=== PATIENT | female | born 1990 | race Caucasian/White ===

== ENCOUNTER 2023-07-22 14:23 | Inpatient (IN) | payer OTHER ==
[2023-07-22] MEDS ORDERED: LORazepam 0.5 MG TAB PO PRN (15:16)
[2023-07-22] MEDS ORDERED: LORazepam 2 MG/ML INJ IV PRN (15:16)
[2023-07-22] MEDS ORDERED: chlordiazePOXIDE 25 MG CAP PO PRN ×4 (15:16)
[2023-07-22] MEDS ORDERED: LORazepam 1 MG TAB PO PRN (15:16)
--- NOTE | 2023-07-22 15:18 | ED ---
Seizure HPI - General Chief Complaint: Seizure Stated Complaint: seizure Time Seen by Provider: 07/22/23 15:12 Source: patient, EMS, RN notes reviewed, old records reviewed Mode of arrival: EMS Limitations: altered mental status - History of Present Illness Initial Comments: This is a 32-year-old female to the ER for evaluation today. Patient presents today for evaluation of seizure with significant alcohol withdrawal and hallucinations here in the emergency department today. Patient is in a mildly postictal state shaky weak and complaining of confusion and wanting to stop drinking MD Complaint: seizure, possible seizure -: hour(s) Description of Episode: loss of consciousness, tonic-clonic movement -: second(s) Witnessed: yes - by bystander Trauma: Yes Seizure History: known seizure disorder, history of withdrawal seizures Place: home Possible Precipitating Event: none Associated Symptoms: denies other symptoms Treatments Prior to Arrival: none - Related Data Home Medications Medication Instructions Recorded Confirmed Gabapentin [Neurontin] 100 mg PO DAILY PRN 07/22/23 07/24/23 Previous Rx's Medication Instructions Recorded Folic Acid 1 mg PO DAILY #30 tab 07/23/23 Multivitamins, Thera [Multivitamin 1 each PO DAILY #30 tab 07/23/23 (formulary)] Pantoprazole [Protonix] 40 mg PO DAILY #30 tab 07/27/23 chlordiazePOXIDE HCl [Librium] See Taper PO DIRECTED 3 Days #6 07/27/23 cap Allergies Allergy/AdvReac Type Severity Reaction Status Date / Time No Known Allergies Allergy Verified 07/24/23 19:04 Review of Systems ROS Statement: Those systems with pertinent positive or pertinent negative responses have been documented in the HPI. ROS Other: All systems not noted in ROS Statement are negative. Past Medical History Past Medical History: Seizure Disorder Additional Past Medical History / Comment(s): hx tremors since age 12, hypoglycemic History of Any Multi-Drug Resistant Organisms: None Reported Past Surgical History: No Surgical Hx Reported Past Psychological History: Anxiety Smoking Status: Current every day smoker Past Alcohol Use History: Daily Past Drug Use History: None Reported General Exam Limitations: altered mental status General appearance: alert, in no apparent distress Head exam: Present: atraumatic, normocephalic, normal inspection Eye exam: Present: normal appearance, PERRL, EOMI. Absent: scleral icterus, conjunctival injection, periorbital swelling ENT exam: Present: normal exam, mucous membranes moist Neck exam: Present: normal inspection. Absent: tenderness, meningismus, lymphadenopathy Respiratory exam: Present: normal lung sounds bilaterally. Absent: respiratory distress, wheezes, rales, rhonchi, stridor Cardiovascular Exam: Present: regular rate, normal rhythm, normal heart sounds. Absent: systolic murmur, diastolic murmur, rubs, gallop, clicks GI/Abdominal exam: Present: soft, normal bowel sounds. Absent: distended, tenderness, guarding, rebound, rigid Extremities exam: Present: normal inspection, full ROM, normal capillary refill. Absent: tenderness, pedal edema, joint swelling, calf tenderness Back exam: Present: normal inspection Neurological exam: Present: alert, oriented X3, CN II-XII intact Psychiatric exam: Present: normal affect, normal mood Skin exam: Present: warm, dry, intact, normal color. Absent: rash Course Vital Signs 07/22/23 07/22/23 07/22/23 14:32 16:29 19:54 Temperature 98.3 F 99.2 F Pulse Rate 92 99 91 Respiratory 18 18 18 Rate Blood Pressure 121/81 126/73 126/83 O2 Sat by Pulse 91 L 98 95 Oximetry 07/22/23 21:14 Temperature 99.3 F Pulse Rate 93 Respiratory 18 Rate Blood Pressure 115/78 O2 Sat by Pulse 94 L Oximetry - Reevaluation(s) Reevaluation #1: 07/22/23 17:59 With medical records reviewed Reevaluation #2: 07/22/23 17:59 Patient symptoms are improving Reevaluation #3: 07/22/23 17:59 Patient informed of results and questions answered Reevaluation #4: Was pt. sent in by a medical professional or institution (, PA, RECYCLING TECHNICIAN, urgent care, hospital, or group home...) When possible be specific @ -no Did you speak to anyone other than the patient for history (EMS, parent, family, police, friend...)? What history was obtained from this source @ -no Did you review nursing and triage notes (agree or disagree)? Why? @ -agree Are old charts reviewed (outside hosp., previous admission, EMS record, old EKG, old radiological studies, urgent care reports/EKG's, group home records)? Report findings @ -yes Differential Diagnosis (chest pain, altered mental status, abdominal pain women, abdominal pain men, vaginal bleeding, weakness, fever, dyspnea, syncope, headache, dizziness, GI bleed, back pain, seizure, CVA, palpatations, mental health, musculoskeletal)? @ -prior EKG interpreted by me (3pts min.). @ -yes X-rays interpreted by me (1pt min.). @ -yes negative for acute disease CT interpreted by me (1pt min.). @ -no U/S interpreted by me (1pt. min.). @ -no What testing was considered but not performed or refused? (CT, X-rays, U/S, labs)? Why? @ -none What meds were considered but not given or refused? Why? @ -none Did you discuss the management of the patient with other professionals (professionals i.e. , PA, RECYCLING TECHNICIAN, lab, RT, psych nurse, case management social worker, metallographer, teacher, environmental health officer, casework manager)? Give summary @ -no Was smoking cessation discussed for >3mins.? @ -no Was critical care preformed (if so, how long)? @ -no Were there social determinants of health that impacted care today? How? (Homelessness, low income, unemployed, alcoholism, drug addiction, transportation, low edu. Level, literacy, decrease access to med. care, fdc, rehab)? @ -none Was there de-escalation of care discussed even if they declined (Discuss DNR or withdrawal of care, Hospice)? DNR status @ -no What co-morbidities impacted this encounter? (DM, HTN, Smoking, COPD, CAD, Cancer, CVA, ARF, Chemo, Hep., AIDS, mental health diagnosis, sleep apnea, morbid obesity)? @ -none Was patient admitted / discharged? Hospital course, mention meds given and route, prescriptions, significant lab abnormalities, going to OR and other pertinent info. @ - 32 female will be admitted for alcohol withdrawal seizures. Patient has no seizure here in the emergency room but is feeling mildly improved shaking mildly improved confusion Admitted Undiagnosed new problem with uncertain prognosis? @ -no Drug Therapy requiring intensive monitoring for toxicity (Heparin, Nitro, Insulin, Cardizem)? @ -no Were any procedures done? @ -no Diagnosis/symptom? @ -Alcohol intoxication impending withdrawal Acute, or Chronic, or Acute on Chronic? @ -Acute Uncomplicated (without systemic symptoms) or Complicated (systemic symptoms)? @ -Complicated Side effects of treatment? @ -no Exacerbation, Progression, or Severe Exacerbation? @ -exacerbation Poses a threat to life or bodily function? How? (Chest pain, USA, PA, pneumonia, PE, COPD, DKA, ARF, appy, cholecystitis, CVA, Diverticulitis, Homicidal, Suicidal, threat to staff... and all critical care pts) @ -yes with severe intoxication Reevaluation #5: Differential Seizure: Recurrent seizure disorder, febrile seizure, alcohol withdrawal, stimulants, meningitis, encephalitis, intercranial hemorrhage, intracranial tumor, stroke, eclampsia, thyrotoxicosis, hypocalcemia, hyponatremia, hypernatremia, hypomagnesemia, psychogenic, this is not meant to be an all-inclusive list. - Consultations Consultation #1: Spoke with [facility] who agrees to admit this patient Medical Decision Making - Medical Decision Making 32 female will be admitted for alcohol withdrawal seizures. Patient has no seizure here in the emergency room but is feeling mildly improved shaking mildly improved confusion - Lab Data Result diagrams: 07/23/23 06:10 07/23/23 06:10 Lab Results 07/22/23 07/22/23 07/22/23 Range/Units 15:35 15:35 15:35 WBC 6.8 (3.8-10.6) k/uL RBC 3.64 L (3.80-5.40) m/uL Hgb 13.0 (11.4-16.0) gm/dL Hct 40.2 (34.0-46.0) % MCV 110.6 H (80.0-100.0) fL MCH 35.6 H (25.0-35.0) pg MCHC 32.2 (31.0-37.0) g/dL RDW 12.7 (11.5-15.5) % Plt Count 87 L (150-450) k/uL MPV 9.9 Neutrophils % 66 % Lymphocytes % 22 % Monocytes % 7 % Eosinophils % 3 % Basophils % 1 % Neutrophils # 4.5 (1.3-7.7) k/uL Lymphocytes # 1.5 (1.0-4.8) k/uL Monocytes # 0.5 (0-1.0) k/uL Eosinophils # 0.2 (0-0.7) k/uL Basophils # 0.1 (0-0.2) k/uL Manual Slide Review Performed Large Platelets Present Polychromasia Present Macrocytosis Marked A D-Dimer (<0.60) mg/L FEU Sodium 136 L (137-145) mmol/L Potassium 4.2 (3.5-5.1) mmol/L Chloride 105 (98-107) mmol/L Carbon Dioxide 19 L (22-30) mmol/L Anion Gap 12 mmol/L BUN 8 (7-17) mg/dL Creatinine 0.50 L (0.52-1.04) mg/dL Est GFR (CKD-EPI)AfAm >90 (>60 ml/min/1.73 sqM) Est GFR (CKD-EPI)NonAf >90 (>60 ml/min/1.73 sqM) Glucose 116 H (74-99) mg/dL Lactic Ac Sepsis Rflx Plasma Lactic Acid Akash (0.7-2.0) mmol/L Calcium 9.4 (8.4-10.2) mg/dL Phosphorus 4.4 (2.5-4.5) mg/dL Magnesium 1.3 L (1.6-2.3) mg/dL Total Bilirubin 1.6 H (0.2-1.3) mg/dL AST 278 H (14-36) U/L ALT 102 H (4-34) U/L Alkaline Phosphatase 103 (38-126) U/L Ammonia (<30) umol/L Total Protein 7.1 (6.3-8.2) g/dL Albumin 4.5 (3.5-5.0) g/dL Lipase 132 (23-300) U/L Urine Color Yellow Urine Appearance Cloudy H (Clear) Urine pH 6.0 (5.0-8.0) Ur Specific [place] 1.024 (1.001-1.035) Urine Protein 1+ H (Negative) Urine Glucose (UA) Negative (Negative) Urine Ketones 1+ H (Negative) Urine Blood Negative (Negative) Urine Nitrite Positive H (Negative) Urine Bilirubin Negative (Negative) Urine Urobilinogen 4.0 (<2.0) mg/dL Ur Leukocyte Esterase Large H (Negative) Urine RBC 10 H (0-5) /hpf Urine WBC 35 H (0-5) /hpf Ur Squamous Epith Cells 7 H (0-4) /hpf Urine Bacteria Many H (None) /hpf Urine Mucus Many H (None) /hpf Urine HCG, Qual (Not Detectd) Urine Opiates Screen Not Detected (NotDetected) Ur Oxycodone Screen Not Detected (NotDetected) Urine Methadone Screen Not Detected (NotDetected) Ur Barbiturates Screen Detected H (NotDetected) U Tricyclic Antidepress Not Detected (NotDetected) Ur Phencyclidine Scrn Not Detected (NotDetected) Ur Amphetamines Screen Not Detected (NotDetected) U Methamphetamines Scrn Not Detected (NotDetected) U Benzodiazepines Scrn Detected H (NotDetected) Urine Cocaine Screen Not Detected (NotDetected) U Marijuana (THC) Screen Not Detected (NotDetected) Serum Alcohol <10 mg/dL 07/22/23 07/22/23 07/22/23 Range/Units 15:35 15:35 16:32 WBC (3.8-10.6) k/uL RBC (3.80-5.40) m/uL Hgb (11.4-16.0) gm/dL Hct (34.0-46.0) % MCV (80.0-100.0) fL MCH (25.0-35.0) pg MCHC (31.0-37.0) g/dL RDW (11.5-15.5) % Plt Count (150-450) k/uL MPV Neutrophils % % Lymphocytes % % Monocytes % % Eosinophils % % Basophils % % Neutrophils # (1.3-7.7) k/uL Lymphocytes # (1.0-4.8) k/uL Monocytes # (0-1.0) k/uL Eosinophils # (0-0.7) k/uL Basophils # (0-0.2) k/uL Manual Slide Review Large Platelets Polychromasia Macrocytosis D-Dimer 0.30 (<0.60) mg/L FEU Sodium (137-145) mmol/L Potassium (3.5-5.1) mmol/L Chloride (98-107) mmol/L Carbon Dioxide (22-30) mmol/L Anion Gap mmol/L BUN (7-17) mg/dL Creatinine (0.52-1.04) mg/dL Est GFR (CKD-EPI)AfAm (>60 ml/min/1.73 sqM) Est GFR (CKD-EPI)NonAf (>60 ml/min/1.73 sqM) Glucose (74-99) mg/dL Lactic Ac Sepsis Rflx Y Plasma Lactic Acid Akash 4.8 H* (0.7-2.0) mmol/L Calcium (8.4-10.2) mg/dL Phosphorus (2.5-4.5) mg/dL Magnesium (1.6-2.3) mg/dL Total Bilirubin (0.2-1.3) mg/dL AST (14-36) U/L ALT (4-34) U/L Alkaline Phosphatase (38-126) U/L Ammonia 17 (<30) umol/L Total Protein (6.3-8.2) g/dL Albumin (3.5-5.0) g/dL Lipase (23-300) U/L Urine Color Urine Appearance (Clear) Urine pH (5.0-8.0) Ur Specific [place] (1.001-1.035) Urine Protein (Negative) Urine Glucose (UA) (Negative) Urine Ketones (Negative) Urine Blood (Negative) Urine Nitrite (Negative) Urine Bilirubin (Negative) Urine Urobilinogen (<2.0) mg/dL Ur Leukocyte Esterase (Negative) Urine RBC (0-5) /hpf Urine WBC (0-5) /hpf Ur Squamous Epith Cells (0-4) /hpf Urine Bacteria (None) /hpf Urine Mucus (None) /hpf Urine HCG, Qual (Not Detectd) Urine Opiates Screen (NotDetected) Ur Oxycodone Screen (NotDetected) Urine Methadone Screen (NotDetected) Ur Barbiturates Screen (NotDetected) U Tricyclic Antidepress (NotDetected) Ur Phencyclidine Scrn (NotDetected) Ur Amphetamines Screen (NotDetected) U Methamphetamines Scrn (NotDetected) U Benzodiazepines Scrn (NotDetected) Urine Cocaine Screen (NotDetected) U Marijuana (THC) Screen (NotDetected) Serum Alcohol mg/dL 07/22/23 Range/Units 17:07 WBC (3.8-10.6) k/uL RBC (3.80-5.40) m/uL Hgb (11.4-16.0) gm/dL Hct (34.0-46.0) % MCV (80.0-100.0) fL MCH (25.0-35.0) pg MCHC (31.0-37.0) g/dL RDW (11.5-15.5) % Plt Count (150-450) k/uL MPV Neutrophils % % Lymphocytes % % Monocytes % % Eosinophils % % Basophils % % Neutrophils # (1.3-7.7) k/uL Lymphocytes # (1.0-4.8) k/uL Monocytes # (0-1.0) k/uL Eosinophils # (0-0.7) k/uL Basophils # (0-0.2) k/uL Manual Slide Review Large Platelets Polychromasia Macrocytosis D-Dimer (<0.60) mg/L FEU Sodium (137-145) mmol/L Potassium (3.5-5.1) mmol/L Chloride (98-107) mmol/L Carbon Dioxide (22-30) mmol/L Anion Gap mmol/L BUN (7-17) mg/dL Creatinine (0.52-1.04) mg/dL Est GFR (CKD-EPI)AfAm (>60 ml/min/1.73 sqM) Est GFR (CKD-EPI)NonAf (>60 ml/min/1.73 sqM) Glucose (74-99) mg/dL Lactic Ac Sepsis Rflx Plasma Lactic Acid Akash (0.7-2.0) mmol/L Calcium (8.4-10.2) mg/dL Phosphorus (2.5-4.5) mg/dL Magnesium (1.6-2.3) mg/dL Total Bilirubin (0.2-1.3) mg/dL AST (14-36) U/L ALT (4-34) U/L Alkaline Phosphatase (38-126) U/L Ammonia (<30) umol/L Total Protein (6.3-8.2) g/dL Albumin (3.5-5.0) g/dL Lipase (23-300) U/L Urine Color Urine Appearance (Clear) Urine pH (5.0-8.0) Ur Specific [place] (1.001-1.035) Urine Protein (Negative) Urine Glucose (UA) (Negative) Urine Ketones (Negative) Urine Blood (Negative) Urine Nitrite (Negative) Urine Bilirubin (Negative) Urine Urobilinogen (<2.0) mg/dL Ur Leukocyte Esterase (Negative) Urine RBC (0-5) /hpf Urine WBC (0-5) /hpf Ur Squamous Epith Cells (0-4) /hpf Urine Bacteria (None) /hpf Urine Mucus (None) /hpf Urine HCG, Qual Not Detected (Not Detectd) Urine Opiates Screen (NotDetected) Ur Oxycodone Screen (NotDetected) Urine Methadone Screen (NotDetected) Ur Barbiturates Screen (NotDetected) U Tricyclic Antidepress (NotDetected) Ur Phencyclidine Scrn (NotDetected) Ur Amphetamines Screen (NotDetected) U Methamphetamines Scrn (NotDetected) U Benzodiazepines Scrn (NotDetected) Urine Cocaine Screen (NotDetected) U Marijuana (THC) Screen (NotDetected) Serum Alcohol mg/dL - Radiology Data Radiology results: report reviewed (X-rays negative for acute disease), image reviewed Disposition Clinical Impression: Generalized seizure, Alcohol withdrawal, Hypomagnesemia, Alcohol intoxication delirium Disposition: HOME SELF-CARE Condition: Good Is patient prescribed a controlled substance at d/c from ED?: No Time of Disposition: 18:00
[2023-07-22] MEDS: SODIUM CHLORIDE 0.9% 1,000 ML IV STA ×2 (15:29→18:12)
[2023-07-22] MEDS: SODIUM CHLORIDE 0.9% 500 ML 500 ML IV STA (15:29)
[2023-07-22] MEDS: LORazepam 2 MG/ML INJ IV STA (15:31)
[2023-07-22 15:53] LABS: Basophils # (A) 0.1 k/uL (0-0.2); Basophils % (A) 1 %; Eosinophils # (A) 0.2 k/uL (0-0.7); Eosinophils % (A) 3 %; HCT 40.2 % (34.0-46.0); Lymphocytes # (A) 1.5 k/uL (1.0-4.8); Lymphocytes % (A) 22 %; MCH 35.6 pg (25.0-35.0); MCHC 32.2 g/dL (31.0-37.0); MCV 110.6 fL (80.0-100.0); Macrocytosis Marked; Mean Platelet Volume 9.9; Monocytes # (A) 0.5 k/uL (0-1.0); Monocytes % (A) 7 %; Neutrophils # (A) 4.5 k/uL (1.3-7.7); Neutrophils % (A) 66 %; RBC 3.64 m/uL (3.80-5.40); RDW 12.7 % (11.5-15.5); WBC 6.8 k/uL (3.8-10.6)
[2023-07-22 16:02] LABS: ALT 102 U/L (4-34); African American GFR (CKD) >90 (>60 ml/min/1.73 sqM); Albumin 4.5 g/dL (3.5-5.0); Alcohol <10 mg/dL; Anion Gap 12 mmol/L; Blood Urea Nitrogen 8 mg/dL (7-17); Calcium 9.4 mg/dL (8.4-10.2); Carbon Dioxide 19 mmol/L (22-30); Chloride 105 mmol/L (98-107); Glucose 116 mg/dL (74-99); Lipase 132 U/L (23-300); Non-African American GFR(CKD) >90 (>60 ml/min/1.73 sqM); Sodium 136 mmol/L (137-145); Total Bilirubin 1.6 mg/dL (0.2-1.3); Total Protein 7.1 g/dL (6.3-8.2)
[2023-07-22 16:30] LABS: AST 278 U/L (14-36); Alkaline Phosphatase 103 U/L (38-126); Magnesium 1.3 mg/dL (1.6-2.3); Potassium 4.2 mmol/L (3.5-5.1)
[2023-07-22 16:31] LABS: Lactic Acid, Venous 4.8 mmol/L (0.7-2.0); Phosphorus 4.4 mg/dL (2.5-4.5)
[2023-07-22 17:05] LABS: Appearance,Urine Cloudy (Clear); Bacteria,Urine Many /hpf; Bilirubin,Urine Negative (Negative); Blood,Urine Negative (Negative); Color,Urine Yellow; Glucose,Urine (UA) Negative (Negative); Ketones,Urine 1+ (Negative); Leukocyte Esterase,Urine Large (Negative); Mucus,Urine Many /hpf; Nitrite,Urine Positive (Negative); Protein,Urine 1+ (Negative); RBC,Urine 10 /hpf (0-5); Specific Gravity,Urine 1.024 (1.001-1.035); Squamous Epithelial Cell,Urine 7 /hpf (0-4); WBC,Urine 35 /hpf (0-5)
[2023-07-22 17:09] LABS: Large Platelets Present; Platelet Count 87 k/uL (150-450)
[2023-07-22 17:10] LABS: Polychromasia Present
[2023-07-22 17:14] LABS: Amphetamine Screen,Urine Not Detected (NotDetected); Barbiturate Screen,Urine Detected (NotDetected); Benzodiazepines Screen,Urine Detected (NotDetected); Cocaine Screen,Urine Not Detected (NotDetected); Methadone Screen, Urine Not Detected (NotDetected); Opiate Screen,Urine Not Detected (NotDetected); Oxycodone Screen, Urine Not Detected (NotDetected); Phencyclidine Screen,Urine Not Detected (NotDetected); Tricyclic Antidepressant,Urine Not Detected (NotDetected); Urn Cannabinoid Scrn Not Detected (NotDetected)
[2023-07-22] MEDS: LORazepam 2 MG/ML INJ IV PRN ×2 (17:29→20:10)
--- NOTE | 2023-07-22 17:41 | XR ---
EXAMINATION TYPE: XR chest 1V DATE OF EXAM: 07/22/2023 COMPARISON: NONE HISTORY: Shortness of breath TECHNIQUE: Single frontal view of the chest is obtained. FINDINGS: There is no focal air space opacity, pleural effusion, or pneumothorax seen. The cardiac silhouette size is upper limits of normal. The osseous structures are intact. IMPRESSION: No acute process.
[2023-07-22] MEDS ORDERED: NALOXONE 0.4 MG/ML 1 ML VIAL IV PRN (17:53)
[2023-07-22] MEDS: MAGNESIUM SULFATE-D5W PMX 1 GM in DEXTROSE/WATER 1 100ML.BAG IVPB SCH (20:25)
[2023-07-22] MEDS: SODIUM CHLORIDE 0.9% 1,000 ML IV SCH (21:23)
[2023-07-23] MEDS: LORazepam 1 MG TAB PO PRN ×2 (03:59→15:15)
[2023-07-23 07:28] VITALS: RESP 17
[2023-07-23 09:04] LABS: ALT 76 U/L (8-44); AST 152 U/L (13-35); Albumin 4.1 g/dL (3.8-4.9); Albumin/Globulin Ratio 1.95 Ratio (1.60-3.17); Alkaline Phosphatase 94 U/L (41-126); BUN/Creat Ratio 10.17 Ratio (12.00-20.00); Blood Urea Nitrogen 6.1 mg/dL (9.0-27.0); Calcium 9.1 mg/dL (8.7-10.3); Carbon Dioxide 20.4 mmol/L (21.6-31.8); Chloride 97 mmol/L (96-109); Globulin 2.1 g/dL (1.6-3.3); Glucose 87 mg/dL (70-110); Magnesium 1.9 mg/dL (1.5-2.4); Potassium 3.9 mmol/L (3.5-5.5); Sodium 134 mmol/L (135-145); Total Bilirubin 1.2 mg/dL (0.3-1.2); Total Protein 6.2 g/dL (6.2-8.2)
[2023-07-23 09:06] LABS: Basophils # (A) 0.07 X 10*3/uL (0.00-0.10); Basophils % (A) 0.9 %; Eosinophils # (A) 0.13 X 10*3/uL (0.04-0.35); Eosinophils % (A) 1.6 %; HCT 36.8 % (37.2-46.3); HGB 12.6 g/dL (12.0-15.0); Lymphocytes # (A) 2.07 X 10*3/uL (0.90-5.00); Lymphocytes % (A) 25.2 %; MCH 36.4 pg (27.0-32.0); MCHC 34.2 g/dL (32.0-37.0); MCV 106.4 FL (80.0-97.0); Macrocytosis (M) 2+; Mean Platelet Volume 11.4 FL (9.5-12.2); Monocytes # (A) 0.84 X 10*3/uL (0.20-1.00); Monocytes % (A) 10.2 %; NRBC Per 100 WBC 0 X 10*3/uL (0.00-0.01); Neutrophils # (A) 5.07 X 10*3/uL (1.80-7.70); Neutrophils % (A) 61.6 %; Platelet Count 85 X 10*3/uL (140-440); RBC 3.46 X 10*6/uL (4.10-5.20); RDW 12.4 % (11.5-14.5); WBC 8.22 X 10*3/uL (4.50-10.00)
[2023-07-23] MEDS: MULTIVITAMINS, THERA 1 EACH TAB PO SCH (09:49)
[2023-07-23] MEDS: FOLIC ACID 1 MG TAB PO SCH (09:49)
[2023-07-23] MEDS: PANTOPRAZOLE 40 MG/10 ML VIAL IV SCH (09:49)
[2023-07-23 14:39] VITALS: BP 123/81; PULSE 83; TEMP 98.4
--- NOTE | 2023-07-23 22:13 | EEG ---
ELECTROENCEPHALOGRAM REPORT PREAMBLE: 32-year-old female with a seizure. The patient has possible alcohol withdrawal as well. CURRENT MEDICATIONS: 1. Ceftriaxone. 2. Folic acid. 3. Ativan. 4. Multivitamin. 5. Protonix. EEG FINDINGS: This is a 21-channel digital EEG recorded with video component, utilizing 10/20 international system with referential and bipolar montages. Background consists of moderately well-developed and regulated, mixed frequencies of some 9 to 10 hertz alpha, intermixed with some low-voltage fast frequency beta activity seen in posterior head region bilaterally. Background is posterior dominant, and seems to be not very clearly reactive to eye opening or closing. Photic driving response was not clearly seen. Different stages of sleep were not seen. No focal or generalized epileptiform activity was seen. There was some body jerking noted by the alarm technician, but there was no electrographic abnormality with it. IMPRESSION: This is a normal awake EEG. No focal, lateralized, or epileptiform activity was seen. The presence of slightly excessive low-voltage fast frequency beta activity suggests benzodiazepine effect. MMODL / IJN: [id number] /
--- NOTE | 2023-07-25 07:51 | P.HPIM ---
History of Present Illness H&P Date: 07/23/23 This is a 32-year-old female with medical history significant for alcohol abuse seizure disorder and daily tobacco use. Patient comes in secondary to alcohol drawl symptoms. States that she was drinking up to 1 pint to 1/5 of alcohol per day sometimes more has been binge drinking and decided that she was done and has not had alcohol beverage in over 24 hours. Her serum alcohol level on admission was less than 10. Had a drug toxicology showing barbiturates and benzodiazepines. Urinalysis showing positive nitrates large leukocyte Estrace. Patient's MCV is 110, lactic acid of 4.8, magnesium 1.3. AST and ALT are significantly elevated. She was admitted to the hospital for acute alcohol wi thdrawal and DTs started on IV Ativan CIWA protocol. Patient is unsure whether she wants to stop drinking at this time discussed with patient that if she will want to continue drinking then we will discharge her home as she does not want to quit and be treated for alcohol withdrawal. REVIEW OF SYSTEMS: CONSTITUTIONAL: No fever, no malaise, no fatigue. HEENT: No recent visual problems or hearing problems. Denied any sore throat. CARDIOVASCULAR: No chest pain, orthopnea, PND, no palpitations, no syncope. PULMONARY: No shortness of breath, no cough, no hemoptysis. GASTROINTESTINAL: No diarrhea, no nausea, no vomiting, no abdominal pain. NEUROLOGICAL: No headaches, no weakness, no numbness. HEMATOLOGICAL: Denies any bleeding or petechiae. GENITOURINARY: Denies any burning micturition, frequency, or urgency. MUSCULOSKELETAL/RHEUMATOLOGICAL: Denies any joint pain, swelling, or any muscle pain. ENDOCRINE: Denies any polyuria or polydipsia. The rest of the 14-point review of systems is negative. PHYSICAL EXAMINATION: GENERAL: The patient is alert and oriented x3, not in any acute distress. Well developed, well nourished. HEENT: Pupils are round and equally reacting to light. EOMI. No scleral icterus. No conjunctival pallor. Normocephalic, atraumatic. No pharyngeal erythema. No thyromegaly. CARDIOVASCULAR: S1 and S2 present. No murmurs, rubs, or gallops. PULMONARY: Chest is clear to auscultation, no wheezing or crackles. ABDOMEN: Soft, nontender, nondistended, normoactive bowel sounds. No palpable organomegaly. MUSCULOSKELETAL: No joint swelling or deformity. EXTREMITIES: No cyanosis, clubbing, or pedal edema. NEUROLOGICAL: Gross neurological examination did not reveal any focal deficits. SKIN: No rashes. Assessment and plan Acute alcohol withdrawal and early DTs on ativan Ciwa protocol patient at this time is awake and alert and asking for discharge Hx of alcohol withdrawal seizure EEG shows normal activity. Transaminitis secondary to above Lactic acidosis secondary to alcohol withdrawal seizure Abnormal urinalysis with no urinary symptoms GI prophylaxis DVT prophylaxis Full Code The impression and plan of care has been dictated by Eun Khanna, Nurse Practitioner as directed. Dr. Cale MD I have performed a history and physical examination and medical decision making of this patient, discussed the same with the dictator, and agree with the dictators assessment and plan as written, documented as a scribe. Based on total visit time, I have performed more than 50% of this visit. Past Medical History Past Medical History: Seizure Disorder Additional Past Medical History / Comment(s): hx tremors since age 12, hypoglycemic History of Any Multi-Drug Resistant Organisms: None Reported Past Surgical History: No Surgical Hx Reported Past Psychological History: Anxiety Smoking Status: Current every day smoker Past Alcohol Use History: Daily Past Drug Use History: None Reported Medications and Allergies Home Medications Medication Instructions Recorded Confirmed Type Gabapentin [Neurontin] 100 mg PO DAILY PRN 07/22/23 07/24/23 History Folic Acid 1 mg PO DAILY #30 tab 07/23/23 07/24/23 Rx Multivitamins, Thera [Multivitamin 1 each PO DAILY #30 tab 07/23/23 07/24/23 Rx (formulary)] chlordiazePOXIDE HCl [Librium] See Taper PO DIRECTED 07/24/23 07/24/23 History Allergies Allergy/AdvReac Type Severity Reaction Status Date / Time No Known Allergies Allergy Verified 07/24/23 19:04 Physical Exam Vitals: Vital Signs Temp Pulse Pulse Resp BP BP Pulse Ox 07/23/23 08:00 73 17 07/23/23 07:11 98.8 F 73 17 121/77 97 07/23/23 01:57 98.7 F 78 16 126/79 96 07/22/23 21:37 99.0 F 86 16 138/84 96 07/22/23 21:14 99.3 F 93 18 115/78 94 L 07/22/23 19:54 99.2 F 91 18 126/83 95 07/22/23 16:29 99 18 126/73 98 07/22/23 14:32 98.3 F 92 18 121/81 91 L Intake and Output 07/22/23 07/23/23 07/23/23 22:59 06:59 14:59 Other: Voiding Method External Catheter External Catheter # Voids 1 Weight 68.039 kg Results CBC & Chem 7: 07/23/23 06:10 07/23/23 06:10 Labs: Abnormal Lab Results - Last 24 Hours (Table) 07/22/23 07/22/23 07/22/23 Range/Units 15:35 15:35 15:35 RBC 3.64 L (3.80-5.40) m/uL Hct (37.2-46.3) % MCV 110.6 H (80.0-100.0) fL MCH 35.6 H (25.0-35.0) pg Plt Count 87 L (150-450) k/uL Macrocytosis Marked A Macrocytosis (manual) Sodium 136 L (137-145) mmol/L Carbon Dioxide 19 L (22-30) mmol/L Anion Gap (4.00-12.00) mmol/L BUN (9.0-27.0) mg/dL Creatinine 0.50 L (0.52-1.04) mg/dL BUN/Creatinine Ratio (12.00-20.00) Ratio Glucose 116 H (74-99) mg/dL Plasma Lactic Acid Akash (0.7-2.0) mmol/L Magnesium 1.3 L (1.6-2.3) mg/dL Total Bilirubin 1.6 H (0.2-1.3) mg/dL AST 278 H (14-36) U/L ALT 102 H (4-34) U/L Urine Appearance Cloudy H (Clear) Urine Protein 1+ H (Negative) Urine Ketones 1+ H (Negative) Urine Nitrite Positive H (Negative) Ur Leukocyte Esterase Large H (Negative) Urine RBC 10 H (0-5) /hpf Urine WBC 35 H (0-5) /hpf Ur Squamous Epith Cells 7 H (0-4) /hpf Urine Bacteria Many H (None) /hpf Urine Mucus Many H (None) /hpf Ur Barbiturates Screen Detected H (NotDetected) U Benzodiazepines Scrn Detected H (NotDetected) 07/22/23 07/23/23 07/23/23 Range/Units 15:35 06:10 06:10 RBC 3.46 L (3.80-5.40) m/uL Hct 36.8 L (37.2-46.3) % MCV 106.4 H (80.0-100.0) fL MCH 36.4 H (25.0-35.0) pg Plt Count 85 L (150-450) k/uL Macrocytosis Macrocytosis (manual) 2+ A Sodium 134 L (137-145) mmol/L Carbon Dioxide 20.4 L (22-30) mmol/L Anion Gap 16.60 H (4.00-12.00) mmol/L BUN 6.1 L (9.0-27.0) mg/dL Creatinine (0.52-1.04) mg/dL BUN/Creatinine Ratio 10.17 L (12.00-20.00) Ratio Glucose (74-99) mg/dL Plasma Lactic Acid Akash 4.8 H* (0.7-2.0) mmol/L Magnesium (1.6-2.3) mg/dL Total Bilirubin (0.2-1.3) mg/dL AST 152 H (14-36) U/L ALT 76 H (4-34) U/L Urine Appearance (Clear) Urine Protein (Negative) Urine Ketones (Negative) Urine Nitrite (Negative) Ur Leukocyte Esterase (Negative) Urine RBC (0-5) /hpf Urine WBC (0-5) /hpf Ur Squamous Epith Cells (0-4) /hpf Urine Bacteria (None) /hpf Urine Mucus (None) /hpf Ur Barbiturates Screen (NotDetected) U Benzodiazepines Scrn (NotDetected) Thrombosis Risk Factor Assmnt - Choose All That Apply Any of the Below Risk Factors Present?: No Other Risk Factors: No Other congenital or acquired thrombophilia - If yes, enter type in comment: No Thrombosis Risk Factor Assessment Level: Very Low Risk Assessment and Plan Time with Patient: Greater than 30
--- NOTE | 2023-07-25 07:52 | P.DS ---
Providers Date of admission: 07/22/23 17:57 Attending physician: Joesph Vanegas Primary care physician: Stated None Hospital Course: This is a 32-year-old female with medical history significant for alcohol abuse seizure disorder and daily tobacco use. Patient comes in secondary to alcohol drawl symptoms. States that she was drinking up to 1 pint to 1/5 of alcohol per day sometimes more has been binge drinking and decided that she was done and has not had alcohol beverage in over 24 hours. Her serum alcohol level on admission was less than 10. Had a drug toxicology showing barbiturates and benzodiazepines. Urinalysis showing positive nitrates large leukocyte Estrace. Patient's MCV is 110, lactic acid of 4.8, magnesium 1.3. AST and ALT are significantly elevated. She was admitted to the hospital for acute alcohol withdrawal and DTs started on IV Ativan CIWA protocol. Patient is unsure whether she wants to stop drinking at this time discussed with patient that if she will want to continue drinking then we will discharge her home as she does not want to quit and be treated for alcohol withdrawal. Patient was monitored on the medical floor. She does not want to quit drinking she has sobered up at this point. She wants to be discharged home. REVIEW OF SYSTEMS: CONSTITUTIONAL: No fever, no malaise, no fatigue. HEENT: No recent visual problems or hearing problems. Denied any sore throat. CARDIOVASCULAR: No chest pain, orthopnea, PND, no palpitations, no syncope. PULMONARY: No shortness of breath, no cough, no hemoptysis. GASTROINTESTINAL: No diarrhea, no nausea, no vomiting, no abdominal pain. NEUROLOGICAL: No headaches, no weakness, no numbness. HEMATOLOGICAL: Denies any bleeding or petechiae. GENITOURINARY: Denies any burning micturition, frequency, or urgency. MUSCULOSKELETAL/RHEUMATOLOGICAL: Denies any joint pain, swelling, or any muscle pain. ENDOCRINE: Denies any polyuria or polydipsia. The rest of the 14-point review of systems is negative. PHYSICAL EXAMINATION: GENERAL: The patient is alert and oriented x3, not in any acute distress. Well developed, well nourished. HEENT: Pupils are round and equally reacting to light. EOMI. No scleral icterus. No conjunctival pallor. Normocephalic, atraumatic. No pharyngeal erythema. No thyromegaly. CARDIOVASCULAR: S1 and S2 present. No murmurs, rubs, or gallops. PULMONARY: Chest is clear to auscultation, no wheezing or crackles. ABDOMEN: Soft, nontender, nondistended, normoactive bowel sounds. No palpable organomegaly. MUSCULOSKELETAL: No joint swelling or deformity. EXTREMITIES: No cyanosis, clubbing, or pedal edema. NEUROLOGICAL: Gross neurological examination did not reveal any focal deficits. SKIN: No rashes. Assessment and plan Acute alcohol withdrawal and early DTs on ativan Ciwa protocol patient at this time is awake and alert and asking for discharge we will send a librium taper and patient is counseled on the need to avoid alcohol with this medication. She states she has the ACE for SplitSecnd and she does not want any more information at this time. Hx of alcohol withdrawal seizure EEG shows normal activity. Transaminitis secondary to above Lactic acidosis secondary to alcohol withdrawal seizure Abnormal urinalysis with no urinary symptoms GI prophylaxis DVT prophylaxis Full Code The impression and plan of care has been dictated by Eun Khanna, Nurse Practitioner as directed. Dr. Cale MD I have performed a history and physical examination and medical decision making of this patient, discussed the same with the dictator, and agree with the dictators assessment and plan as written, documented as a scribe. Based on total visit time, I have performed more than 50% of this visit. Patient Condition at Discharge: Good Plan - Discharge Summary Discharge Rx Participant: Yes New Discharge Prescriptions: New Folic Acid 1 mg PO DAILY #30 tab Multivitamins, Thera [Multivitamin (formulary)] 1 each PO DAILY #30 tab Continue Gabapentin [Neurontin] 100 mg PO DAILY PRN PRN Reason: Pain No Action chlordiazePOXIDE HCl [Librium] See Taper PO DIRECTED Discharge Medication List Gabapentin [Neurontin] 100 mg PO DAILY PRN 07/22/23 [History] Folic Acid 1 mg PO DAILY #30 tab 07/23/23 [Rx] Multivitamins, Thera [Multivitamin (formulary)] 1 each PO DAILY #30 tab 07/23/23 [Rx] chlordiazePOXIDE HCl [Librium] See Taper PO DIRECTED 07/24/23 [History] Follow up Appointment(s)/Referral(s): None,Stated [Primary Care Provider] - 1-2 days Patient Instructions/Handouts: Seizure/Epilepsy Discharge Instructions & Follow-Up Activity/Diet/Wound Care/Special Instructions: Avoid driving, operating heavy machinery, swimming alone, and ladders for 6 months or until seizure free Librium is given for alcohol withdrawal symptoms Do not drink alcohol while you are on this medication Discharge/Stand Alone Forms: NIRMALA Hickman, Outpatient Counseling, In Substance Abuse Facilities Discharge Disposition: HOME SELF-CARE
== END 2023-07-23 16:02 | disposition home or self-care (01) | DRG 775 ==
LOC: EC 14:23 → 4SSUR 17:57
PROVIDERS: ADMIT Hospitalist; ATTEND Hospitalist
DX: F10.231 Alcohol dependence with withdrawal delirium (principal); G40.909 Epilepsy, unspecified, not intractable, without status epilepticus; E83.42 Hypomagnesemia; F17.200 Nicotine dependence, unspecified, uncomplicated; F41.9 Anxiety disorder, unspecified; Z28.310 Unvaccinated for COVID-19; Z28.21 Immunization not carried out because of patient refusal; Z79.899 Other long term (current) drug therapy; Y90.0 Blood alcohol level of less than 20 mg/100 ml; E87.20 Acidosis, unspecified; R74.01 Elevation of levels of liver transaminase levels
CPT/HCPCS: 36415; 71045; 80053; 80306; 80320; 81001; 81025; 82140; 83605; 83690; 83735; 84100; 85025; 85379; 87040; 93005; 95816; 96361; 96365; 96367; 96375; 96376; 99285

== ENCOUNTER 2023-07-24 18:35 | Inpatient (IN) | payer OTHER ==
[2023-07-24] MEDS ORDERED: LORazepam 2 MG/ML INJ IV PRN (18:52)
[2023-07-24] MEDS ORDERED: LORazepam 1 MG TAB PO PRN (18:52)
--- NOTE | 2023-07-24 18:53 | ED ---
Alcohol HPI - General Stated Complaint: ETOH Time Seen by Provider: 07/24/23 18:41 Source: RN notes reviewed, old records reviewed Mode of arrival: EMS Limitations: altered mental status - History of Present Illness Initial Comments: This is a 32-year-old female to the ER for altered mental status. Patient was brought in by EMS EMS was called by patient's fianc for not acting appropriately and suspected intoxication. 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) Previous Visits for Alcohol Intoxication?: Yes Recent Trauma: Yes Associated Symptoms: denies other symptoms Treatments Prior to Arrival: none Chronic Alcohol Use: Yes - Related Data Home Medications Medication Instructions Recorded Confirmed Gabapentin [Neurontin] 100 mg PO DAILY PRN 07/22/23 07/24/23 Previous Rx's Medication Instructions Recorded Folic Acid 1 mg PO DAILY #30 tab 07/23/23 Multivitamins, Thera [Multivitamin 1 each PO DAILY #30 tab 07/23/23 (formulary)] Pantoprazole [Protonix] 40 mg PO DAILY #30 tab 07/27/23 chlordiazePOXIDE HCl [Librium] See Taper PO DIRECTED 3 Days #6 07/27/23 cap Allergies Allergy/AdvReac Type Severity Reaction Status Date / Time No Known Allergies Allergy Verified 07/24/23 19:04 Review of Systems ROS Statement: Those systems with pertinent positive or pertinent negative responses have been documented in the HPI. ROS Other: All systems not noted in ROS Statement are negative. Past Medical History Past Medical History: Seizure Disorder Additional Past Medical History / Comment(s): hx tremors since age 12, hypoglycemic History of Any Multi-Drug Resistant Organisms: None Reported Past Surgical History: No Surgical Hx Reported Past Psychological History: Anxiety Smoking Status: Current every day smoker Past Alcohol Use History: Daily Past Drug Use History: None Reported General Exam Limitations: altered mental status General appearance: alert, appears intoxicated, anxious, in distress Head exam: Present: atraumatic, normocephalic, normal inspection Eye exam: Present: normal appearance, PERRL, EOMI. Absent: scleral icterus, conjunctival injection, periorbital swelling ENT exam: Present: normal exam, mucous membranes moist Neck exam: Present: normal inspection. Absent: tenderness, meningismus, lymphadenopathy Respiratory exam: Present: normal lung sounds bilaterally. Absent: respiratory distress, wheezes, rales, rhonchi, stridor Cardiovascular Exam: Present: regular rate, normal rhythm, normal heart sounds. Absent: systolic murmur, diastolic murmur, rubs, gallop, clicks GI/Abdominal exam: Present: soft, normal bowel sounds. Absent: distended, tenderness, guarding, rebound, rigid Extremities exam: Present: normal inspection, full ROM, normal capillary refill. Absent: tenderness, pedal edema, joint swelling, calf tenderness Back exam: Present: normal inspection Neurological exam: Present: alert, oriented X3, CN II-XII intact Psychiatric exam: Present: normal affect, normal mood Skin exam: Present: warm, dry, intact, normal color. Absent: rash Course Vital Signs 07/24/23 07/24/23 19:01 22:30 Temperature 97.6 F Pulse Rate 107 H 106 H Respiratory 16 18 Rate Blood Pressure 120/79 127/76 O2 Sat by Pulse 97 95 Oximetry - Reevaluation(s) Reevaluation #1: 07/24/23 18:57 Medical records reviewed Reevaluation #2: Patient symptoms improved Reevaluation #3: Patient informed of results and questions answered Reevaluation #4: Was pt. sent in by a medical professional or institution (, PA, RUSSIAN LANGUAGE INSTRUCTOR, urgent care, hospital, or fci...) When possible be specific @ -no Did you speak to anyone other than the patient for history (EMS, parent, family, police, friend...)? What history was obtained from this source @ -no Did you review nursing and triage notes (agree or disagree)? Why? @ -agree Are old charts reviewed (outside hosp., previous admission, EMS record, old EKG, old radiological studies, urgent care reports/EKG's, fci records)? Report findings @ -yes Differential Diagnosis (chest pain, altered mental status, abdominal pain women, abdominal pain men, vaginal bleeding, weakness, fever, dyspnea, syncope, headache, dizziness, GI bleed, back pain, seizure, CVA, palpatations, mental health, musculoskeletal)? @ -prior EKG interpreted by me (3pts min.). @ -yes X-rays interpreted by me (1pt min.). @ -no CT interpreted by me (1pt min.). @ -no U/S interpreted by me (1pt. min.). @ -no What testing was considered but not performed or refused? (CT, X-rays, U/S, labs)? Why? @ -none What meds were considered but not given or refused? Why? @ -none Did you discuss the management of the patient with other professionals (professionals i.e. , PA, RUSSIAN LANGUAGE INSTRUCTOR, lab, RT, psych nurse, social security assessor, shoe cobbler, teacher, corporate banking officer, transplant case manager)? Give summary @ -no Was smoking cessation discussed for >3mins.? @ -no Was critical care preformed (if so, how long)? @ -no Were there social determinants of health that impacted care today? How? (Homelessness, low income, unemployed, alcoholism, drug addiction, transportation, low edu. Level, literacy, decrease access to med. care, retirement, rehab)? @ -none Was there de-escalation of care discussed even if they declined (Discuss DNR or withdrawal of care, Hospice)? DNR status @ -no What co-morbidities impacted this encounter? (DM, HTN, Smoking, COPD, CAD, Cancer, CVA, ARF, Chemo, Hep., AIDS, mental health diagnosis, sleep apnea, morbid obesity)? @ -none Was patient admitted / discharged? Hospital course, mention meds given and route, prescriptions, significant lab abnormalities, going to OR and other per tinent info. @ - 32 female to ER for altered mental status and will be admitted for alcohol withdrawal and alcohol withdrawal delirium Admitted alcohol withdrawal delirium Undiagnosed new problem with uncertain prognosis? @ -no Drug Therapy requiring intensive monitoring for toxicity (Heparin, Nitro, Insulin, Cardizem)? @ -no Were any procedures done? @ -no Diagnosis/symptom? @ - Acute, or Chronic, or Acute on Chronic? @ -Acute Uncomplicated (without systemic symptoms) or Complicated (systemic symptoms)? @ -Complicated Side effects of treatment? @ -no Exacerbation, Progression, or Severe Exacerbation? @ -exacerbation Poses a threat to life or bodily function? How? (Chest pain, [place], DE, pneumonia, PE, COPD, DKA, ARF, appy, cholecystitis, CVA, Diverticulitis, Homicidal, Suicidal, threat to staff... and all critical care pts) @ -yes with severe withdrawal alcohol withdrawal delirium Reevaluation #5: Differential Altered Mental Status: Hypoglycemia, DKA, hypercapnia, ETOH, overdose, CO poisoning, trauma, myxedema coma, HTN encephalopathy, infection, encephalitis, psychosis, intercranial hemorrhage, hepatic encephalopathy, meningitis, CVA, this is not meant to be an all-inclusive list Medical Decision Making - Medical Decision Making 32 female to ER for altered mental status and will be admitted for alcohol withdrawal and alcohol withdrawal delirium - Lab Data Result diagrams: 07/25/23 07:28 07/27/23 03:37 Lab Results 07/24/23 07/24/23 07/24/23 Range/Units 20:12 20:12 20:12 WBC 5.0 (3.8-10.6) k/uL RBC 3.89 (3.80-5.40) m/uL Hgb 13.9 (11.4-16.0) gm/dL Hct 42.4 (34.0-46.0) % MCV 109.0 H (80.0-100.0) fL MCH 35.8 H (25.0-35.0) pg MCHC 32.9 (31.0-37.0) g/dL RDW 12.9 (11.5-15.5) % Plt Count 69 L (150-450) k/uL MPV 9.0 Neutrophils % 46 % Lymphocytes % 43 % Monocytes % 5 % Eosinophils % 3 % Basophils % 1 % Neutrophils # 2.3 (1.3-7.7) k/uL Lymphocytes # 2.2 (1.0-4.8) k/uL Monocytes # 0.3 (0-1.0) k/uL Eosinophils # 0.1 (0-0.7) k/uL Basophils # 0.0 (0-0.2) k/uL Macrocytosis Moderate Sodium 142 (137-145) mmol/L Potassium 4.0 (3.5-5.1) mmol/L Chloride 108 H (98-107) mmol/L Carbon Dioxide 17 L (22-30) mmol/L Anion Gap 17 mmol/L BUN <2 L (7-17) mg/dL Creatinine 0.46 L (0.52-1.04) mg/dL Est GFR (CKD-EPI)AfAm >90 (>60 ml/min/1.73 sqM) Est GFR (CKD-EPI)NonAf >90 (>60 ml/min/1.73 sqM) Glucose 96 (74-99) mg/dL Calcium 9.3 (8.4-10.2) mg/dL Phosphorus 3.6 (2.5-4.5) mg/dL Magnesium 1.7 (1.6-2.3) mg/dL Total Bilirubin 0.8 (0.2-1.3) mg/dL AST 550 H (14-36) U/L ALT 145 H (4-34) U/L Alkaline Phosphatase 100 (38-126) U/L Total Protein 8.1 (6.3-8.2) g/dL Albumin 5.3 H (3.5-5.0) g/dL Lipase 128 (23-300) U/L Urine Color Colorless Urine Appearance Clear (Clear) Urine pH 5.5 (5.0-8.0) Ur Specific Emmett 1.002 (1.001-1.035) Urine Protein Negative (Negative) Urine Glucose (UA) Negative (Negative) Urine Ketones Negative (Negative) Urine Blood Negative (Negative) Urine Nitrite Negative (Negative) Urine Bilirubin Negative (Negative) Urine Urobilinogen <2.0 (<2.0) mg/dL Ur Leukocyte Esterase Negative (Negative) Urine Opiates Screen Not Detected (NotDetected) Ur Oxycodone Screen Not Detected (NotDetected) Urine Methadone Screen Not Detected (NotDetected) Ur Barbiturates Screen Not Detected (NotDetected) U Tricyclic Antidepress Not Detected (NotDetected) Ur Phencyclidine Scrn Not Detected (NotDetected) Ur Amphetamines Screen Not Detected (NotDetected) U Methamphetamines Scrn Not Detected (NotDetected) U Benzodiazepines Scrn Detected H (NotDetected) Urine Cocaine Screen Not Detected (NotDetected) U Marijuana (THC) Screen Not Detected (NotDetected) Serum Alcohol 396 H* mg/dL Disposition Clinical Impression: Alcohol withdrawal, Alcohol intoxication delirium Disposition: ADMITTED IP TO THIS HOSP Condition: Serious Is patient prescribed a controlled substance at d/c from ED?: No Time of Disposition: 21:50
[2023-07-24] MEDS: LORazepam 2 MG/ML INJ IV PRN (19:55)
[2023-07-24 20:32] LABS: Appearance,Urine Clear (Clear); Bilirubin,Urine Negative (Negative); Blood,Urine Negative (Negative); Color,Urine Colorless; Glucose,Urine (UA) Negative (Negative); Ketones,Urine Negative (Negative); Leukocyte Esterase,Urine Negative (Negative); Nitrite,Urine Negative (Negative); PH, Urine 5.5 (5.0-8.0); Protein,Urine Negative (Negative); Specific Gravity,Urine 1.002 (1.001-1.035); Urobilinogen,Urine <2.0 mg/dL (<2.0)
[2023-07-24 20:45] LABS: Amphetamine Screen,Urine Not Detected (NotDetected); Barbiturate Screen,Urine Not Detected (NotDetected); Benzodiazepines Screen,Urine Detected (NotDetected); Cocaine Screen,Urine Not Detected (NotDetected); Methadone Screen, Urine Not Detected (NotDetected); Opiate Screen,Urine Not Detected (NotDetected); Oxycodone Screen, Urine Not Detected (NotDetected); Phencyclidine Screen,Urine Not Detected (NotDetected); Tricyclic Antidepressant,Urine Not Detected (NotDetected); Urn Cannabinoid Scrn Not Detected (NotDetected)
[2023-07-24 20:56] LABS: Eosinophils % (A) 3 %; HCT 42.4 % (34.0-46.0); HGB 13.9 gm/dL (11.4-16.0); Lymphocytes % (A) 43 %; MCH 35.8 pg (25.0-35.0); MCHC 32.9 g/dL (31.0-37.0); Macrocytosis Moderate; Monocytes % (A) 5 %; Neutrophils % (A) 46 %; RBC 3.89 m/uL (3.80-5.40); RDW 12.9 % (11.5-15.5)
[2023-07-24 20:57] LABS: Basophils % (A) 1 %; Eosinophils # (A) 0.1 k/uL (0-0.7); Lymphocytes # (A) 2.2 k/uL (1.0-4.8); Monocytes # (A) 0.3 k/uL (0-1.0); Neutrophils # (A) 2.3 k/uL (1.3-7.7)
[2023-07-24 21:03] LABS: ALT 145 U/L (4-34); AST 550 U/L (14-36); African American GFR (CKD) >90 (>60 ml/min/1.73 sqM); Albumin 5.3 g/dL (3.5-5.0); Alkaline Phosphatase 100 U/L (38-126); Anion Gap 17 mmol/L; Blood Urea Nitrogen <2 mg/dL (7-17); Calcium 9.3 mg/dL (8.4-10.2); Carbon Dioxide 17 mmol/L (22-30); Chloride 108 mmol/L (98-107); Glucose 96 mg/dL (74-99); Lipase 128 U/L (23-300); Magnesium 1.7 mg/dL (1.6-2.3); Non-African American GFR(CKD) >90 (>60 ml/min/1.73 sqM); Phosphorus 3.6 mg/dL (2.5-4.5); Sodium 142 mmol/L (137-145); Total Bilirubin 0.8 mg/dL (0.2-1.3); Total Protein 8.1 g/dL (6.3-8.2)
[2023-07-24 21:36] LABS: Alcohol 396 mg/dL
[2023-07-24 21:44] LABS: Platelet Count 69 k/uL (150-450)
[2023-07-24] MEDS ORDERED: NALOXONE 0.4 MG/ML 1 ML VIAL IV PRN (21:48)
[2023-07-24] MEDS ORDERED: ONDANSETRON 4 MG/2 ML VIAL IVP PRN (21:48)
[2023-07-24] MEDS: LORazepam 1 MG TAB PO PRN (21:48)
[2023-07-25] MEDS: LORazepam 2 MG/ML INJ IV PRN (00:11)
[2023-07-25] MEDS: LORazepam 0.5 MG TAB PO PRN (01:14)
[2023-07-25 05:18] LABS: Glucose,Whole Blood 89 mg/dL (70-110)
[2023-07-25 07:59] LABS: Basophils # (A) 0.1 k/uL (0-0.2); Basophils % (A) 1 %; Eosinophils # (A) 0.2 k/uL (0-0.7); Eosinophils % (A) 3 %; HGB 12.1 gm/dL (11.4-16.0); Lymphocytes % (A) 32 %; MCH 37.3 pg (25.0-35.0); MCHC 34.6 g/dL (31.0-37.0); MCV 107.8 fL (80.0-100.0); Macrocytosis Moderate; Mean Platelet Volume 9.3; Monocytes # (A) 0.4 k/uL (0-1.0); Monocytes % (A) 6 %; Neutrophils # (A) 3.5 k/uL (1.3-7.7); Neutrophils % (A) 55 %; Platelet Count 103 k/uL (150-450); RBC 3.25 m/uL (3.80-5.40); RDW 12.8 % (11.5-15.5); WBC 6.3 k/uL (3.8-10.6)
[2023-07-25 08:07] LABS: African American GFR (CKD) >90 (>60 ml/min/1.73 sqM); Albumin 4.1 g/dL (3.5-5.0); Anion Gap 10 mmol/L; Blood Urea Nitrogen 5 mg/dL (7-17); Calcium 9.1 mg/dL (8.4-10.2); Carbon Dioxide 22 mmol/L (22-30); Chloride 108 mmol/L (98-107); Glucose 88 mg/dL (74-99); Magnesium 1.4 mg/dL (1.6-2.3); Non-African American GFR(CKD) >90 (>60 ml/min/1.73 sqM); Phosphorus 4.2 mg/dL (2.5-4.5); Potassium 3.5 mmol/L (3.5-5.1); Sodium 140 mmol/L (137-145); Total Protein 6.6 g/dL (6.3-8.2)
[2023-07-25 08:08] LABS: ALT 119 U/L (4-34); AST 320 U/L (14-36); Alkaline Phosphatase 78 U/L (38-126); Total Bilirubin 0.9 mg/dL (0.2-1.3)
[2023-07-25] MEDS: DEXTROSE 5%-0.45% NACL 1,000 ML IV SCH (08:18)
[2023-07-25] MEDS: PANTOPRAZOLE 40 MG/10 ML VIAL IV SCH (08:18)
[2023-07-25 11:55] VITALS: BMI 18.1
[2023-07-25] MEDS: POTASSIUM CHLORIDE ER 20 MEQ TAB.ER PO STA (12:05)
[2023-07-25] MEDS: LORazepam 1 MG TAB PO PRN (12:05)
--- NOTE | 2023-07-25 12:50 | P.HPIM ---
History of Present Illness 30-year-old female is admitted for alcohol intoxication. Patient was discharged yesterday after after she declined to go to alcohol with Librium if needed went home and started drinking alcohol again usually drinks about half to 1 pint of alcohol every day. Patient is having withdrawals at this time when she came in her alcohol level was around 350. Patient is time is willing to quit alcohol and wanted to seek support. REVIEW OF SYSTEMS: CONSTITUTIONAL: No fever, no malaise, no fatigue. HEENT: No recent visual problems or hearing problems. Denied any sore throat. CARDIOVASCULAR: No chest pain, orthopnea, PND, no palpitations, no syncope. PULMONARY: No shortness of breath, no cough, no hemoptysis. GASTROINTESTINAL: No diarrhea, no nausea, no vomiting, no abdominal pain. NEUROLOGICAL: No headaches, no weakness, no numbness. HEMATOLOGICAL: Denies any bleeding or petechiae. GENITOURINARY: Denies any burning micturition, frequency, or urgency. MUSCULOSKELETAL/RHEUMATOLOGICAL: Denies any joint pain, swelling, or any muscle pain. ENDOCRINE: Denies any polyuria or polydipsia. The rest of the 14-point review of systems is negative. PHYSICAL EXAMINATION: GENERAL: The patient is alert and oriented x3, not in any acute distress. Well developed, well nourished. Tremors secondary to withdrawal HEENT: Pupils are round and equally reacting to light. EOMI. No scleral icterus. No conjunctival pallor. Normocephalic, atraumatic. No pharyngeal erythema. No thyromegaly. CARDIOVASCULAR: S1 and S2 present. No murmurs, rubs, or gallops. PULMONARY: Mild expiratory wheezing on exam ABDOMEN: Soft, nontender, nondistended, normoactive bowel sounds. No palpable organomegaly. MUSCULOSKELETAL: No joint swelling or deformity. EXTREMITIES: No cyanosis, clubbing, or pedal edema. NEUROLOGICAL: Gross neurological examination did not reveal any focal deficits. SKIN: No rashes. Assessment and plan -Alcohol withdrawal patient is on Ativan WA protocol will add Librium Librium 3 times a day, thiamine multivitamin supplementation -Thrombocytopenia secondary to alcoholism -Hypomagnesemia again secondary to alcoholism replace magnesium acute alcoholic hepatitis expected to improve with cessation of alcohol -Alcohol abuse social work was consulted willing to quit alcohol -Hyperchloremic metabolic acidosis D5 half-normal saline which will be continued -Undiagnosed COPD with mild acute exacerbation patient will be started on ipratropium albuterol inhalational in the inhaled steroids DVT prophylaxis: Lovenox GI prophylaxis Protonix Past Medical History Past Medical History: Seizure Disorder Additional Past Medical History / Comment(s): hx tremors since age 12, hypoglycemic History of Any Multi-Drug Resistant Organisms: None Reported Past Surgical History: No Surgical Hx Reported Past Anesthesia/Blood Transfusion Reactions: Unable to Obtain Past Psychological History: Anxiety Smoking Status: Current every day smoker Past Alcohol Use History: Daily Past Drug Use History: None Reported Medications and Allergies Home Medications Medication Instructions Recorded Confirmed Type Gabapentin [Neurontin] 100 mg PO DAILY PRN 07/22/23 07/24/23 History Folic Acid 1 mg PO DAILY #30 tab 07/23/23 07/24/23 Rx Multivitamins, Thera [Multivitamin 1 each PO DAILY #30 tab 07/23/23 07/24/23 Rx (formulary)] chlordiazePOXIDE HCl [Librium] See Taper PO DIRECTED 07/24/23 07/24/23 History Allergies Allergy/AdvReac Type Severity Reaction Status Date / Time No Known Allergies Allergy Verified 07/24/23 19:04 Physical Exam Vitals: Vital Signs Temp Pulse Pulse Resp BP BP Pulse Ox 07/25/23 07:16 98.6 F 94 18 113/74 93 L 07/25/23 01:48 98.3 F 93 17 103/69 97 07/24/23 23:06 98.5 F 107 H 18 112/77 95 07/24/23 22:30 106 H 18 127/76 95 07/24/23 19:01 97.6 F 107 H 16 120/79 97 Intake and Output 07/24/23 07/25/23 07/25/23 22:59 06:59 14:59 Other: # Voids 2 Weight 58.967 kg 58.967 kg 58.967 kg Results CBC & Chem 7: 07/25/23 07:28 07/25/23 07:28 Labs: Abnormal Lab Results - Last 24 Hours (Table) 07/24/23 07/24/23 07/24/23 Range/Units 20:12 20:12 20:12 RBC (3.80-5.40) m/uL MCV 109.0 H (80.0-100.0) fL MCH 35.8 H (25.0-35.0) pg Plt Count 69 L (150-450) k/uL Chloride 108 H (98-107) mmol/L Carbon Dioxide 17 L (22-30) mmol/L BUN <2 L (7-17) mg/dL Creatinine 0.46 L (0.52-1.04) mg/dL Magnesium (1.6-2.3) mg/dL AST 550 H (14-36) U/L ALT 145 H (4-34) U/L Albumin 5.3 H (3.5-5.0) g/dL U Benzodiazepines Scrn Detected H (NotDetected) Serum Alcohol 396 H* mg/dL 07/25/23 07/25/23 Range/Units 07:28 07:28 RBC 3.25 L (3.80-5.40) m/uL MCV 107.8 H (80.0-100.0) fL MCH 37.3 H (25.0-35.0) pg Plt Count 103 L (150-450) k/uL Chloride 108 H (98-107) mmol/L Carbon Dioxide (22-30) mmol/L BUN 5 L (7-17) mg/dL Creatinine (0.52-1.04) mg/dL Magnesium 1.4 L (1.6-2.3) mg/dL AST 320 H (14-36) U/L ALT 119 H (4-34) U/L Albumin (3.5-5.0) g/dL U Benzodiazepines Scrn (NotDetected) Serum Alcohol mg/dL
--- NOTE | 2023-07-25 15:34 | P.CN ---
Psychiatric Consult - . Consult date: 07/25/23 Consult:: 07/25/23 15:32 I came up to see the patient and she just had enough Ativan to put her to sleep very and was in no condition to talk to me. So I discussed the case with the nurse and reviewed the chart. Patient has pretty straightforward problem with alcohol addiction and I think we need to focus on seeing if she would be willing to go directly into an inpatient unit for alcohol rehab for the last time she is discharged she relapsed immediately. If there is some concern of bipolar or schizophrenia that would be feeding the alcohol then please let us know and we'll come back when she isn't so sedated and try to work her up.
[2023-07-25] MEDS: D5-0.45% NACL WITH KCL 20MEQ/L 1,000 ML IV SCH (16:38)
[2023-07-25] MEDS: MAGNESIUM SULFATE-D5W PMX 1 GM in DEXTROSE/WATER 1 100ML.BAG IVPB SCH (16:42)
[2023-07-25] MEDS: THIAMINE 100 MG TAB PO SCH (16:43)
[2023-07-25] MEDS: chlordiazePOXIDE 25 MG CAP PO SCH (16:43)
[2023-07-25] MEDS: NICOTINE 14MG/24HR PATCH TRANSDERM SCH (16:43)
[2023-07-25] MEDS: IPRATROPIUM-ALBUTEROL 3 ML NEB INHALATION PRN (20:18)
[2023-07-25] MEDS: BUDESONIDE 0.5 MG/2 ML NEBU INHALATION SCH (20:18)
[2023-07-26] MEDS: PANTOPRAZOLE 40 MG TABLET PO SCH (08:28)
[2023-07-26] MEDS: ENOXAPARIN 40 MG/0.4 ML SYRINGE SQ SCH (08:29)
--- NOTE | 2023-07-26 14:27 | P.PN ---
Subjective Progress Note Date: 07/26/23 30-year-old female is admitted for alcohol intoxication. Patient was discharged yesterday after after she declined to go to alcohol with Librium if needed went home and started drinking alcohol again usually drinks about half to 1 pint of alcohol every day. Patient is having withdrawals at this time when she came in her alcohol level was around 350. Patient is time is willing to quit alcohol and wanted to seek support. 07/26/2023 Patient is evaluated today in follow-up continues on IV Ativan CIWA protocol and oral Librium scheduled. Will recommend to continue this overnight and monitor for alcohol withdrawal and seizure. Patient will need to be eval by social work tomorrow and possibly rehab. Review of Systems Constitutional: Denied any fatigue denied any fever. Cardio vascular: denied any chest pain, palpitations Gastrointestinal: denied any nausea, vomiting, diarrhea Pulmonary: Denied any shortness of breath cough Neurologic denied any new focal deficits All inpatient medications were reviewed and appropriate changes in these medications as dictated in the interval history and assessment and plan. PHYSICAL EXAMINATION: GENERAL: The patient is alert and oriented x3, not in any acute distress. Well developed, well nourished. Tremors secondary to withdrawal HEENT: Pupils are round and equally reacting to light. EOMI. No scleral icterus. No conjunctival pallor. Normocephalic, atraumatic. No pharyngeal erythema. No thyromegaly. CARDIOVASCULAR: S1 and S2 present. No murmurs, rubs, or gallops. PULMONARY: Mild expiratory wheezing on exam ABDOMEN: Soft, nontender, nondistended, normoactive bowel sounds. No palpable organomegaly. MUSCULOSKELETAL: No joint swelling or deformity. EXTREMITIES: No cyanosis, clubbing, or pedal edema. NEUROLOGICAL: Gross neurological examination did not reveal any focal deficits. SKIN: No rashes. Assessment and plan -Alcohol withdrawal patient is on Ativan CIWA protocol will add Librium Librium 3 times a day, thiamine multivitamin supplementation -Thrombocytopenia secondary to alcoholism -Hypomagnesemia again secondary to alcoholism replace magnesium acute alcoholic hepatitis expected to improve with cessation of alcohol -Alcohol abuse social work was consulted willing to quit alcohol -Hyperchloremic metabolic acidosis D5 half-normal saline which will be continued -Undiagnosed COPD with mild acute exacerbation patient will be started on ipratropium albuterol inhalational in the inhaled steroids DVT prophylaxis: Lovenox GI prophylaxis Protonix The impression and plan of care has been dictated by Eun Khanna, Nurse Practitioner as directed. Dr. Cale MD I have performed a history and physical examination and medical decision making of this patient, discussed the same with the dictator, and agree with the dictators assessment and plan as written, documented as a scribe. Based on total visit time, I have performed more than 50% of this visit. Objective - Vital Signs Vital signs: Vital Signs Temp 97.7 F 07/26/23 07:25 Pulse 63 07/26/23 07:25 Resp 19 07/26/23 07:25 BP 110/74 07/26/23 07:25 Pulse Ox 98 07/26/23 07:25 FiO2 Intake & Output 07/25/23 07/26/23 07/26/23 18:59 06:59 18:59 Weight 58.967 kg Other: Voiding Method Toilet # Voids 3 2 - Labs CBC & Chem 7: 07/25/23 07:28 07/25/23 07:28 Assessment and Plan Time with Patient: Less than 30
[2023-07-26] MEDS: LORazepam 1 MG TAB PO PRN (22:24)
[2023-07-27 08:07] VITALS: RESP 16; TEMP 97.7
[2023-07-27 08:39] LABS: BUN/Creat Ratio 9.33 Ratio (12.00-20.00); Blood Urea Nitrogen 5.6 mg/dL (9.0-27.0); Calcium 9.5 mg/dL (8.7-10.3); Carbon Dioxide 21.9 mmol/L (21.6-31.8); Chloride 105 mmol/L (96-109); Glucose 113 mg/dL (70-110); Magnesium 1.8 mg/dL (1.5-2.4); Potassium 4.4 mmol/L (3.5-5.5); Sodium 139 mmol/L (135-145)
[2023-07-27] MEDS: MAGNESIUM SULFATE-D5W PMX 1 GM in DEXTROSE/WATER 1 100ML.BAG IVPB ONE (11:36)
[2023-07-27] MEDS: MAGNESIUM OXIDE 400 MG TAB PO STA (11:40)
[2023-07-27 15:08] VITALS: BP 128/93; PULSE 71
--- NOTE | 2023-07-29 15:44 | P.DS ---
Providers Date of admission: 07/24/23 21:48 Attending physician: Joesph Vanegas Consults: 07/24/23 21:48 Consult Physician Routine Consulting Provider: Steve Mena Consult Reason/Comments: etoh Do you want consulting provider notified?: Yes Primary care physician: Stated None Hospital Course: Final Diagnosis -Alcohol withdrawal -Thrombocytopenia secondary to alcoholism -Hypomagnesemia again secondary to alcoholism replace magnesium -acute alcoholic hepatitis -Alcohol abuse social work was consulted willing to quit alcohol -Hyperchloremic metabolic acidosis -Undiagnosed COPD with mild acute exacerbation Discharge Disposition Patient is stable for discharge home. Patient is given oral Protonix daily as well as a 3-day Librium taper and recommended to not drink alcohol while taking this medication. Patient to continue on thiamine folic acid and a multivitamin supplement daily. Patient needs to establish care with a PCP. Hospital Course 30-year-old female is admitted for alcohol intoxication. Patient was discharged yesterday after after she declined to go to alcohol with Librium if needed went home and started drinking alcohol again usually drinks about half to 1 pint of alcohol every day. Patient is having withdrawals at this time when she came in her alcohol level was around 350. Patient is time is willing to quit alcohol and wanted to seek support. She was admitted to the hospital and started on IV Ativan CIWA protocol oral Librium scheduled. Patient was monitored overnight no episode of seizure-like activity and she is now alert and oriented x 3. Patient wants to quit alcohol and is given outside resources to follow-up on discharge. She is not having any shortness of breath. Her electrolytes and renal function have remained stable at this time. Her LFTs are improving and they are consistent with alcoholic hepatitis with an elevated AST. Will be discharged home. Please see medication reconciliation for a list of current medications. Thank you for allowing us to participate in the care of this patient. The impression and plan of care has been dictated by Eun Khanna Nurse Practitioner as directed. Dr. Cale MD I have performed a history and physical examination and medical decision making of this patient, discussed the same with the dictator, and agree with the dictators assessment and plan as written, documented as a scribe. Based on total visit time, I have performed more than 50% of this visit. Patient Condition at Discharge: Fair Plan - Discharge Summary Discharge Rx Participant: No New Discharge Prescriptions: New Pantoprazole [Protonix] 40 mg PO DAILY #30 tab Continue Gabapentin [Neurontin] 100 mg PO DAILY PRN PRN Reason: Pain Folic Acid 1 mg PO DAILY #30 tab Multivitamins, Thera [Multivitamin (formulary)] 1 each PO DAILY #30 tab Changed chlordiazePOXIDE HCl [Librium] See Taper PO DIRECTED 3 Days #6 cap Discharge Medication List Gabapentin [Neurontin] 100 mg PO DAILY PRN 07/22/23 [History] Folic Acid 1 mg PO DAILY #30 tab 07/23/23 [Rx] Multivitamins, Thera [Multivitamin (formulary)] 1 each PO DAILY #30 tab 07/23/23 [Rx] Pantoprazole [Protonix] 40 mg PO DAILY #30 tab 07/27/23 [Rx] chlordiazePOXIDE HCl [Librium] See Taper PO DIRECTED 3 Days #6 cap 07/27/23 [Rx] Follow up Appointment(s)/Referral(s): None,Stated [Primary Care Provider] - 1-2 days (Please call a primary care provider for follow-up appointment.) Patient Instructions/Handouts: Alcohol Withdrawal (DC) Activity/Diet/Wound Care/Special Instructions: Take oral magnesium supplement, Thiamine and folic acid daily Do not drink while taking librium Discharge/Stand Alone Forms: AA Meetings [facility] & [facility] - [facility], AA Meetings [facility], [facility] Resources, Outpatient Counseling, In Substance Abuse Facilities Discharge Disposition: HOME SELF-CARE
== END 2023-07-27 15:54 | disposition home or self-care (01) | DRG 775 ==
LOC: EC 18:35 → 4SSUR 21:48
PROVIDERS: ADMIT Hospitalist; ATTEND Hospitalist
PROC: HZ2ZZZZ Detoxification Services for Substance Abuse Treatment (ICD-10-PCS; principal; 2023-07-24)
DX: F10.231 Alcohol dependence with withdrawal delirium (principal); E87.8 Other disorders of electrolyte and fluid balance, not elsewhere classified; K70.10 Alcoholic hepatitis without ascites; F10.229 Alcohol dependence with intoxication, unspecified; D69.59 Other secondary thrombocytopenia; J44.1 Chronic obstructive pulmonary disease with (acute) exacerbation; E87.29 Other acidosis; E83.42 Hypomagnesemia; G40.909 Epilepsy, unspecified, not intractable, without status epilepticus; Z71.41 Alcohol abuse counseling and surveillance of alcoholic; Z79.899 Other long term (current) drug therapy; F41.9 Anxiety disorder, unspecified
CPT/HCPCS: 36415; 80048; 80053; 80306; 80320; 81003; 83690; 83735; 84100; 85025; 94640; 96374; 99285

== ENCOUNTER 2023-09-01 14:31 | Inpatient (IN) | payer OTHER ==
--- NOTE | 2023-09-01 15:12 | ED ---
Seizure HPI - General Chief Complaint: Seizure Stated Complaint: Seizure Time Seen by Provider: 09/01/23 14:40 Source: EMS Mode of arrival: EMS Limitations: no limitations - History of Present Illness Initial Comments: 32-year-old female with past medical history of alcohol abuse who presents emergency department after she had 2 seizures at home. Boyfriend called EMS as the patient had 2 seizures in bed. How long the seizures lasted. EMS found the patient to be postictal. She arrives and is extremely tremulous. Patient states she has a history of seizure disorder however she is not currently on any medications for the seizures. She admits to drinking a pint of alcohol a day. Fevers. Denies any trauma from the seizure. No concern for . No other alleviating, precipitating or modifying factors - Related Data Home Medications Medication Instructions Recorded Confirmed Ibuprofen [Motrin] 800 mg PO Q8H PRN 09/01/23 09/01/23 Allergies Allergy/AdvReac Type Severity Reaction Status Date / Time No Known Allergies Allergy Verified 09/01/23 18:26 Review of Systems ROS Statement: Those systems with pertinent positive or pertinent negative responses have been documented in the HPI. ROS Other: All systems not noted in ROS Statement are negative. Past Medical History Past Medical History: Seizure Disorder Additional Past Medical History / Comment(s): hx tremors since age 12, hypoglycemic History of Any Multi-Drug Resistant Organisms: None Reported Past Surgical History: No Surgical Hx Reported Past Anesthesia/Blood Transfusion Reactions: Unable to Obtain Past Psychological History: Anxiety Smoking Status: Current every day smoker Past Alcohol Use History: Daily Past Drug Use History: None Reported General Exam Limitations: altered mental status General appearance: alert, anxious, other (shaky. disheveled) Head exam: Present: atraumatic, normocephalic, normal inspection Eye exam: Present: normal appearance, PERRL, EOMI. Absent: scleral icterus, conjunctival injection, periorbital swelling ENT exam: Present: mucous membranes dry Neck exam: Present: normal inspection. Absent: tenderness, meningismus, lymphadenopathy Respiratory exam: Present: normal lung sounds bilaterally. Absent: respiratory distress, wheezes, rales, rhonchi, stridor Cardiovascular Exam: Present: regular rate, normal rhythm, normal heart sounds. Absent: systolic murmur, diastolic murmur, rubs, gallop, clicks GI/Abdominal exam: Present: soft, normal bowel sounds. Absent: distended, tenderness, guarding, rebound, rigid Neurological exam: Present: alert Psychiatric exam: Present: agitated Skin exam: Present: diaphoretic Course Vital Signs 09/01/23 14:36 Temperature 98.9 F Pulse Rate 81 Respiratory 18 Rate Blood Pressure 120/76 O2 Sat by Pulse 90 L Oximetry Medical Decision Making - Medical Decision Making Was pt. sent in by a medical professional or institution (, PA, [employer], urgent care, hospital, or snf...) When possible be specific @ -No Did you speak to anyone other than the patient for history (EMS, parent, family, police, friend...)? What history was obtained from this source @ -Spoke with EMS for history Did you review nursing and triage notes (agree or disagree)? Why? @ -I reviewed and agree with nursing and triage notes Were old charts reviewed (outside hosp., previous admission, EMS record, old EKG, old radiological studies, urgent care reports/EKG's, snf records)? Report findings @ -Reviewed patient's previous ED visit with admission which was July 23 where patient was hospitalized for alcohol withdrawal seizures Differential Diagnosis (chest pain, altered mental status, abdominal pain women, abdominal pain men, vaginal bleeding, weakness, fever, dyspnea, syncope, headache, dizziness, GI bleed, back pain, seizure, CVA, palpatations, mental h ealth, musculoskeletal)? @ -Differential Seizure: Recurrent seizure disorder, febrile seizure, alcohol withdrawal, stimulants, meningitis, encephalitis, intercranial hemorrhage, intracranial tumor, stroke, eclampsia, thyrotoxicosis, hypocalcemia, hyponatremia, hypernatremia, hypomagnesemia, psychogenic, this is not meant to be an all-inclusive list. EKG interpreted by me (3pts min.). @ -Yes and demonstrates sinus rhythm with a rate of 79. ND interval 120. QRS 87. QTc of 442. No acute ST segment elevations or depressions X-rays interpreted by me (1pt min.). @ -None done CT interpreted by me (1pt min.). @ -yes which demonstrates no acute intracranial process U/S interpreted by me (1pt. min.). @ -None done What testing was considered but not performed or refused? (CT, X-rays, U/S, labs)? Why? @ -None What meds were considered but not given or refused? Why? @ -None Did you discuss the management of the patient with other professionals (professionals i.e. , PA, [employer], lab, RT, psych nurse, clinical social work aide, logistics operations director, teacher, electronic warfare officer, case assistant)? Give summary @ -Spoke with Dr. Dickinson who will admit the patient Was smoking cessation discussed for >3mins.? @ -No Was critical care preformed (if so, how long)? @ -No Were there social determinants of health that impacted care today? How? (Homelessness, low income, unemployed, alcoholism, drug addiction, transportation, low edu. Level, literacy, decrease access to med. care, [place] [facility], rehab)? @ -No Was there de-escalation of care discussed even if they declined (Discuss DNR or withdrawal of care, Hospice)? DNR status @ -No What co-morbidities impacted this encounter? (DM, HTN, Smoking, COPD, CAD, Cancer, CVA, ARF, Chemo, Hep., AIDS, mental health diagnosis, sleep apnea, morbid obesity)? @ -Alcohol abuse Was patient admitted / discharged? Hospital course, mention meds given and route, prescriptions, significant lab abnormalities, going to OR and other pertinent info. @ -Upon arrival patient seen and evaluated in hallway 26. Thorough history and physical exam was performed. Patient is extremely tremulous. IV was established by EMS and she had been given Zofran. I did give the patient diazepam as she states she tolerates this better than Ativan. Laboratory studies are conducted. Patient has an alcohol less than 10. CT of the brain is negative for any acute process. Patient does show signs of alcohol withdrawal with alcohol withdrawal seizure and impending DTs. I did recommend admission and patient was agreeable to this. Spoke with Dr. Dickinson for admission Undiagnosed new problem with uncertain prognosis? @ -No Drug Therapy requiring intensive monitoring for toxicity (Heparin, Nitro, Insulin, Cardizem)? @ -No Were any procedures done? @ -No Diagnosis/symptom? @ -Acute alcohol withdrawal seizure, alcohol abuse, hypomagnesemia Acute, or Chronic, or Acute on Chronic? @ -Acute Uncomplicated (without systemic symptoms) or Complicated (systemic symptoms)? @ -Complicated Side effects of treatment? @ -No Exacerbation, Progression, or Severe Exacerbation? @ -No Poses a threat to life or bodily function? How? (Chest pain, [place], CO, pneumonia, PE, COPD, DKA, ARF, appy, cholecystitis, CVA, Diverticulitis, Homicidal, Suicidal, threat to staff... and all critical care pts) @ -yes as patient did have seizure from alcohol withdrawal - Lab Data Result diagrams: 09/01/23 16:43 09/01/23 16:43 Lab Results 09/01/23 09/01/23 09/01/23 Range/Units 16:09 16:09 16:43 WBC 7.5 (3.8-10.6) k/uL RBC 3.92 (3.80-5.40) m/uL Hgb 14.2 (11.4-16.0) gm/dL Hct 43.0 (34.0-46.0) % MCV 109.7 H (80.0-100.0) fL MCH 36.1 H (25.0-35.0) pg MCHC 32.9 (31.0-37.0) g/dL RDW 13.0 (11.5-15.5) % Plt Count 234 D (150-450) k/uL MPV 8.5 Neutrophils % 82 % Lymphocytes % 11 % Monocytes % 5 % Eosinophils % 1 % Basophils % 1 % Neutrophils # 6.1 (1.3-7.7) k/uL Lymphocytes # 0.8 L (1.0-4.8) k/uL Monocytes # 0.3 (0-1.0) k/uL Eosinophils # 0.1 (0-0.7) k/uL Basophils # 0.1 (0-0.2) k/uL Manual Slide Review Performed Macrocytosis Marked A Sodium (137-145) mmol/L Potassium (3.5-5.1) mmol/L Chloride (98-107) mmol/L Carbon Dioxide (22-30) mmol/L Anion Gap mmol/L BUN (7-17) mg/dL Creatinine (0.52-1.04) mg/dL Est GFR (CKD-EPI)AfAm (>60 ml/min/1.73 sqM) Est GFR (CKD-EPI)NonAf (>60 ml/min/1.73 sqM) Glucose (74-99) mg/dL Calcium (8.4-10.2) mg/dL Magnesium (1.6-2.3) mg/dL Total Bilirubin (0.2-1.3) mg/dL AST (14-36) U/L ALT (4-34) U/L Alkaline Phosphatase (38-126) U/L Total Protein (6.3-8.2) g/dL Albumin (3.5-5.0) g/dL Urine Color Yellow Urine Appearance Cloudy H (Clear) Urine pH 6.0 (5.0-8.0) Ur Specific [place] 1.030 (1.001-1.035) Urine Protein 1+ H (Negative) Urine Glucose (UA) Negative (Negative) Urine Ketones 1+ H (Negative) Urine Blood Negative (Negative) Urine Nitrite Negative (Negative) Urine Bilirubin Negative (Negative) Urine Urobilinogen 2.0 (<2.0) mg/dL Ur Leukocyte Esterase Negative (Negative) Urine RBC 2 (0-5) /hpf Urine WBC 1 (0-5) /hpf Ur Squamous Epith Cells 12 H (0-4) /hpf Hyaline Casts 1 (0-2) /lpf Urine Mucus Moderate H (None) /hpf Urine HCG, Qual Not Detected (Not Detectd) Serum Alcohol mg/dL 09/01/23 Range/Units 16:43 WBC (3.8-10.6) k/uL RBC (3.80-5.40) m/uL Hgb (11.4-16.0) gm/dL Hct (34.0-46.0) % MCV (80.0-100.0) fL MCH (25.0-35.0) pg MCHC (31.0-37.0) g/dL RDW (11.5-15.5) % Plt Count (150-450) k/uL MPV Neutrophils % % Lymphocytes % % Monocytes % % Eosinophils % % Basophils % % Neutrophils # (1.3-7.7) k/uL Lymphocytes # (1.0-4.8) k/uL Monocytes # (0-1.0) k/uL Eosinophils # (0-0.7) k/uL Basophils # (0-0.2) k/uL Manual Slide Review Macrocytosis Sodium 137 (137-145) mmol/L Potassium 4.6 (3.5-5.1) mmol/L Chloride 106 (98-107) mmol/L Carbon Dioxide 24 (22-30) mmol/L Anion Gap 7 mmol/L BUN 6 L (7-17) mg/dL Creatinine 0.52 (0.52-1.04) mg/dL Est GFR (CKD-EPI)AfAm >90 (>60 ml/min/1.73 sqM) Est GFR (CKD-EPI)NonAf >90 (>60 ml/min/1.73 sqM) Glucose 101 H (74-99) mg/dL Calcium 10.1 (8.4-10.2) mg/dL Magnesium 1.3 L (1.6-2.3) mg/dL Total Bilirubin 1.7 H (0.2-1.3) mg/dL AST 123 H (14-36) U/L ALT 46 H (4-34) U/L Alkaline Phosphatase 92 (38-126) U/L Total Protein 7.5 (6.3-8.2) g/dL Albumin 4.6 (3.5-5.0) g/dL Urine Color Urine Appearance (Clear) Urine pH (5.0-8.0) Ur Specific [place] (1.001-1.035) Urine Protein (Negative) Urine Glucose (UA) (Negative) Urine Ketones (Negative) Urine Blood (Negative) Urine Nitrite (Negative) Urine Bilirubin (Negative) Urine Urobilinogen (<2.0) mg/dL Ur Leukocyte Esterase (Negative) Urine RBC (0-5) /hpf Urine WBC (0-5) /hpf Ur Squamous Epith Cells (0-4) /hpf Hyaline Casts (0-2) /lpf Urine Mucus (None) /hpf Urine HCG, Qual (Not Detectd) Serum Alcohol <10 mg/dL Disposition Clinical Impression: Alcohol withdrawal seizure, Hypomagnesemia Disposition: ADMITTED IP TO THIS HOSP Condition: Serious Is patient prescribed a controlled substance at d/c from ED?: No Referrals: Nonstaff,Physician [Primary Care Provider] - 1-2 days Time of Disposition: 18:36 Decision to Admit Reason: Admit from EC Decision Date: 09/01/23 Decision Time: 18:36
[2023-09-01] MEDS: SODIUM CHLORIDE 0.9% 1,000 ML IV STA (16:07)
[2023-09-01 16:55] LABS: Appearance,Urine Cloudy (Clear); Bilirubin,Urine Negative (Negative); Blood,Urine Negative (Negative); Color,Urine Yellow; Glucose,Urine (UA) Negative (Negative); Hyaline Casts,Urine 1 /lpf (0-2); Ketones,Urine 1+ (Negative); Leukocyte Esterase,Urine Negative (Negative); Mucus,Urine Moderate /hpf; Nitrite,Urine Negative (Negative); Protein,Urine 1+ (Negative); RBC,Urine 2 /hpf (0-5); Squamous Epithelial Cell,Urine 12 /hpf (0-4); WBC,Urine 1 /hpf (0-5)
[2023-09-01 17:07] LABS: ALT 46 U/L (4-34); AST 123 U/L (14-36); African American GFR (CKD) >90 (>60 ml/min/1.73 sqM); Albumin 4.6 g/dL (3.5-5.0); Alcohol <10 mg/dL; Alkaline Phosphatase 92 U/L (38-126); Anion Gap 7 mmol/L; Blood Urea Nitrogen 6 mg/dL (7-17); Calcium 10.1 mg/dL (8.4-10.2); Carbon Dioxide 24 mmol/L (22-30); Chloride 106 mmol/L (98-107); Glucose 101 mg/dL (74-99); Magnesium 1.3 mg/dL (1.6-2.3); Non-African American GFR(CKD) >90 (>60 ml/min/1.73 sqM); Potassium 4.6 mmol/L (3.5-5.1); Sodium 137 mmol/L (137-145); Total Bilirubin 1.7 mg/dL (0.2-1.3); Total Protein 7.5 g/dL (6.3-8.2)
[2023-09-01 17:17] LABS: Basophils # (A) 0.1 k/uL (0-0.2); Basophils % (A) 1 %; Eosinophils # (A) 0.1 k/uL (0-0.7); Eosinophils % (A) 1 %; HGB 14.2 gm/dL (11.4-16.0); Lymphocytes # (A) 0.8 k/uL (1.0-4.8); Lymphocytes % (A) 11 %; MCH 36.1 pg (25.0-35.0); MCHC 32.9 g/dL (31.0-37.0); MCV 109.7 fL (80.0-100.0); Macrocytosis Marked; Mean Platelet Volume 8.5; Monocytes # (A) 0.3 k/uL (0-1.0); Monocytes % (A) 5 %; Neutrophils # (A) 6.1 k/uL (1.3-7.7); Neutrophils % (A) 82 %; RBC 3.92 m/uL (3.80-5.40); WBC 7.5 k/uL (3.8-10.6)
[2023-09-01 17:21] LABS: Platelet Count 234 k/uL (150-450)
--- NOTE | 2023-09-01 17:37 | CT ---
EXAMINATION TYPE: CT brain wo con DATE OF EXAM: 09/01/2023 COMPARISON: None HISTORY: Seizure CT DLP: 1109.[address] of the brain was performed. The ventricles, basal cisterns and sulci overlying the cerebral convexities demonstrate a normal appe arance. There is no evidence for intracranial hemorrhage or sulcal effacement. No mass effects are seen. Osseous calvarium is intact. If symptoms persist consider MRI as clinically warranted. IMPRESSION: 1. No acute intracranial process is seen at this time.
[2023-09-01] MEDS ORDERED: LORazepam 2 MG/ML INJ IV PRN ×3 (18:36)
[2023-09-01] MEDS ORDERED: NALOXONE 0.4 MG/ML 1 ML VIAL IV PRN (18:42)
[2023-09-01] MEDS: PANTOPRAZOLE 40 MG/10 ML VIAL IV SCH (18:52)
[2023-09-01] MEDS: ONDANSETRON 4 MG/2 ML VIAL IVP PRN (22:20)
[2023-09-01] MEDS: MAGNESIUM SULFATE-D5W PMX 1 GM in DEXTROSE/WATER 1 100ML.BAG IVPB SCH ×2 (22:29→23:49)
[2023-09-01] MEDS: SODIUM CHLORIDE 0.9% 1,000 ML IV SCH (22:31)
--- NOTE | 2023-09-01 22:40 | P.HPIM ---
History of Present Illness H&P Date: 09/01/23 Chief Complaint: Seizure disorder Patient is a 32-year-old female with past history of seizure disorder presents to the ER via EMS after she had 2 episodes of seizures at home. Patient states that she was at home with her boyfriend who called EMS. Boyfriend was not available for collateral history and he was unreachable via phone call. Patient states that she was taking a nap in her room when she had a sudden onset of seizure. She endorsed 2 episodes of seizures that happened consecutively. Patient denies any prodromal signs before the onset of seizure. According to patient her boyfriend noticed that her episodes lasted for about 30 seconds each. Patient unsure for how long but she was in postictal state when EMS arrived. Patient denies any tongue bite and urinary or bowel incontinence. Denies any head trauma. Patient stated that she has been diagnosed with seizure disorder and she is unsure when her last episode of seizure occurred. She is not on antiseizure medication. Patient has mild tremors in upper extremities and mild nausea but no vomiting. Denies any visual or auditory hallucination. Patient admits to drinking 1 pint of alcohol daily. Her last drink was 2 days ago. Otherwise she denies shortness of breath, chest pain, abdominal pain, diarrhea or constipation, numbness, weakness or tingling in upper or lower extremities. EKG done in the ER shows normal sinus rhythm with heart rate of 79 bpm. SC interval 120 ms. QTc 442 ms, no prolongation noted. No STT wave changes noted. CT brain shows no acute intracranial process. Unremarkable. Vitals: Tmax 98.9 F, heart rate 79, respiratory rate 16, blood pressure 109/79, oxygen saturation 98% on room air. Review of systems: Pertinent positives and negatives as discussed in HPI, a complete review of systems was performed and all other systems are negative. Social history: Tobacco: Half pack per day x 20 years Alcohol: 1 pint of alcohol per day x 20 years Recreational drugs: Unsure Travel: None Occupation: Unemployed Family History: Noncontributory Physical examination: Vital signs reviewed General: non toxic, no distress, appears at stated age, normal weight Derm: no unusual rashes/lesions, warm Head: atraumatic, normocephalic, symmetric Eyes: EOMI, no lid lag, anicteric sclera, pupils equal round reactive to light ENT: Nose and ears atraumatic Neck: No cervical lymphadenopathy, trachea midline, supple Mouth: no lip lesion, mucus membranes moist Cardiovascular: S1S2 reg, no murmur, positive dorsalis pedis pulse bilateral, no edema Lungs: CTA bilateral, no rhonchi, no rales, no accessory muscle use Abdominal: soft, nontender to palpation, no guarding Ext: Mild tremors in bilateral upper extremities. Muscle strength 5 out of 5 in all 4 extremities grossly, no gross muscle atrophy, no contractures, Neuro: CN II-XI grossly intact, no gross focal neuro deficits Psych: Alert, oriented, appropriate affect Assessment/Plan: 32-year-old female with history of seizure disorder is brought to the ER with 2 episodes of seizures at home. #Seizure, suspected tonic-clonic most likely secondary to alcohol withdrawal Consult neurology for EEG test Order falls precaution Continue with oxygen therapy 2 L via nasal cannula seizure precautions Brain CT negative #Alcohol withdrawal due to chronic dependence Management as per [facility] protocol Continue with Zofran 4 mg IVP every 8 hour as needed for nausea and vomiting Continue with IV normal saline at 130 cc/h thiamin 100 mg po daily Blood alcohol level <10 Transaminitis elevated liver enzymes most likely secondary to alcohol abuse Total bilirubin 1.7, AST 123, ALT 46, alkaline phosphatase 92 Continue monitor CMP #Macrocytosis, secondary to alcohol abuse MCV 109.7, hemoglobin 14.2 Check folate RBC and vitamin B12 #Hypomagnesemia Magnesium 1.3 mg/dL Ordered IV magnesium 2 g Continue to monitor magnesium levels #Hyperglycemia Glucose 101 UA shows 1+ urine protein and 1+ urine ketones Check HbA1c Started on sliding scale short acting insulin Continue monitor serum glucose DVT prophylaxis: Lovenox 40 mg subcu daily GI prophylaxis with Protonix 40 mg IV daily The patient is admitted with an anticipated more than 2 midnight stay for evaluation of seizure CODE STATUS: Full code Discussed with: Patient Anticipated discharge place: Home vs rehab Past Medical History Past Medical History: Seizure Disorder Additional Past Medical History / Comment(s): hx tremors since age 12, hypoglycemic History of Any Multi-Drug Resistant Organisms: None Reported Past Surgical History: No Surgical Hx Reported Past Anesthesia/Blood Transfusion Reactions: Unable to Obtain Past Psychological History: Anxiety Smoking Status: Current every day smoker Past Alcohol Use History: Daily Past Drug Use History: None Reported Medications and Allergies Home Medications Medication Instructions Recorded Confirmed Type Ibuprofen [Motrin] 800 mg PO Q8H PRN 09/01/23 09/01/23 History Allergies Allergy/AdvReac Type Severity Reaction Status Date / Time lorazepam [From Ativan] AdvReac Hallucinati Verified 09/01/23 19:02 ons Physical Exam Vitals: Vital Signs Temp Pulse Resp BP Pulse Ox 09/01/23 21:32 79 16 129/79 98 09/01/23 18:45 77 18 127/83 97 09/01/23 14:36 98.9 F 81 18 120/76 90 L Intake and Output 09/01/23 09/01/23 09/01/23 06:59 14:59 22:59 Other: Weight 68.039 kg Results CBC & Chem 7: 09/01/23 16:43 09/01/23 16:43 Labs: Abnormal Lab Results - Last 24 Hours (Table) 09/01/23 09/01/23 09/01/23 Range/Units 16:09 16:43 16:43 MCV 109.7 H (80.0-100.0) fL MCH 36.1 H (25.0-35.0) pg Lymphocytes # 0.8 L (1.0-4.8) k/uL Macrocytosis Marked A BUN 6 L (7-17) mg/dL Glucose 101 H (74-99) mg/dL Magnesium 1.3 L (1.6-2.3) mg/dL Total Bilirubin 1.7 H (0.2-1.3) mg/dL AST 123 H (14-36) U/L ALT 46 H (4-34) U/L Urine Appearance Cloudy H (Clear) Urine Protein 1+ H (Negative) Urine Ketones 1+ H (Negative) Ur Squamous Epith Cells 12 H (0-4) /hpf Urine Mucus Moderate H (None) /hpf Assessment and Plan Assessment: I have seen and evaluated the patient today. I Discussed the case with the resident and agree with the resident's findings I edited the assessment and plan as necessary as documented in the resident's note.
[2023-09-01] MEDS ORDERED: chlordiazePOXIDE 25 MG CAP PO PRN ×3 (22:43)
[2023-09-01] MEDS: chlordiazePOXIDE 25 MG CAP PO PRN (23:06)
[2023-09-01] MEDS: IBUPROFEN 800 MG TAB PO PRN (23:06)
[2023-09-01] MEDS: ENOXAPARIN 40 MG/0.4 ML SYRINGE SQ STA (23:07)
[2023-09-02 06:06] LABS: Glucose,Whole Blood 104 mg/dL (70-110)
[2023-09-02] MEDS: INSULIN ASPART (NovoLOG) 100 UNIT/ML VIAL SQ SCH (06:08)
[2023-09-02] MEDS: THIAMINE 100 MG TAB PO SCH (09:31)
[2023-09-02 10:41] LABS: Basophils # (A) 0.07 X 10*3/uL (0.00-0.10); Basophils % (A) 0.7 %; Eosinophils # (A) 0.06 X 10*3/uL (0.04-0.35); Eosinophils % (A) 0.6 %; HGB 12.8 g/dL (12.0-15.0); Lymphocytes # (A) 2.48 X 10*3/uL (0.90-5.00); Lymphocytes % (A) 23.2 %; MCH 36.6 pg (27.0-32.0); MCHC 34.6 g/dL (32.0-37.0); MCV 105.7 FL (80.0-97.0); Mean Platelet Volume 10.6 FL (9.5-12.2); Monocytes # (A) 0.85 X 10*3/uL (0.20-1.00); NRBC Per 100 WBC 0 X 10*3/uL (0.00-0.01); Neutrophils # (A) 7.18 X 10*3/uL (1.80-7.70); Neutrophils % (A) 67.1 %; Platelet Count 190 X 10*3/uL (140-440); RDW 12.8 % (11.5-14.5); WBC 10.68 X 10*3/uL (4.50-10.00)
[2023-09-02 11:32] LABS: Glucose,Whole Blood 109 mg/dL (70-110)
[2023-09-02 11:46] LABS: Magnesium 2.1 mg/dL (1.5-2.4)
[2023-09-02 11:56] LABS: Blood Urea Nitrogen 6.4 mg/dL (9.0-27.0); Calcium 9.3 mg/dL (8.7-10.3); Carbon Dioxide 20.7 mmol/L (21.6-31.8); Chloride 100 mmol/L (96-109); Glucose 88 mg/dL (70-110); Potassium 3.5 mmol/L (3.5-5.5); Sodium 137 mmol/L (135-145)
--- NOTE | 2023-09-02 12:50 | P.PN ---
Subjective Progress Note Date: 09/02/23 Principal diagnosis: Seizure Cortney was seen and examined. She is drowsy but does awaken and answer questions appropriately. She is having some mild tremors. Appears anxious. Denies visual or tactile hallucinations. Aware she is in the hospital. She is not aware of the year. Objective - Vital Signs Vital signs: Vital Signs Temp 98.4 F 09/02/23 07:07 Pulse 76 09/02/23 07:07 Resp 16 09/02/23 07:07 BP 116/76 09/02/23 07:07 Pulse Ox 98 09/02/23 08:22 FiO2 Intake & Output 09/01/23 09/02/23 09/02/23 18:59 06:59 18:59 Weight 68.039 kg 68.039 kg Other: # Voids 1 - Exam Vitals: Reviewed General: No acute distress HEENT: Mucous membranes moist neck supple Cardiovascular: RRR, S1-S2 Lungs: Breath sounds equal and clear to auscultation bilaterally. No wheezing, rhonchi or rales Extremities: No lower extremity edema - Labs CBC & Chem 7: 09/02/23 06:53 09/02/23 06:53 Labs: Abnormal Lab Results - Last 24 Hours (Table) 09/01/23 09/01/23 09/01/23 Range/Units 16:09 16:43 16:43 WBC (4.50-10.00) X 10*3/uL RBC (4.10-5.20) X 10*6/uL Hct (37.2-46.3) % MCV 109.7 H (80.0-100.0) fL MCH 36.1 H (25.0-35.0) pg Lymphocytes # 0.8 L (1.0-4.8) k/uL Macrocytosis Marked A Carbon Dioxide (21.6-31.8) mmol/L Anion Gap (4.00-12.00) mmol/L BUN 6 L (7-17) mg/dL Creatinine (0.6-1.5) mg/dL Glucose 101 H (74-99) mg/dL Magnesium 1.3 L (1.6-2.3) mg/dL Total Bilirubin 1.7 H (0.2-1.3) mg/dL AST 123 H (14-36) U/L ALT 46 H (4-34) U/L Urine Appearance Cloudy H (Clear) Urine Protein 1+ H (Negative) Urine Ketones 1+ H (Negative) Ur Squamous Epith Cells 12 H (0-4) /hpf Urine Mucus Moderate H (None) /hpf 09/02/23 09/02/23 Range/Units 06:53 06:53 WBC 10.68 H (4.50-10.00) X 10*3/uL RBC 3.50 L (4.10-5.20) X 10*6/uL Hct 37.0 L (37.2-46.3) % MCV 105.7 H (80.0-100.0) fL MCH 36.6 H (25.0-35.0) pg Lymphocytes # (1.0-4.8) k/uL Macrocytosis Carbon Dioxide 20.7 L (21.6-31.8) mmol/L Anion Gap 16.30 H (4.00-12.00) mmol/L BUN 6.4 L (7-17) mg/dL Creatinine 0.5 L (0.6-1.5) mg/dL Glucose (74-99) mg/dL Magnesium (1.6-2.3) mg/dL Total Bilirubin (0.2-1.3) mg/dL AST (14-36) U/L ALT (4-34) U/L Urine Appearance (Clear) Urine Protein (Negative) Urine Ketones (Negative) Ur Squamous Epith Cells (0-4) /hpf Urine Mucus (None) /hpf Assessment and Plan Assessment: 1. Seizure Likely secondary to alcohol withdrawal. Appears to have allergy to Ativan, she is on Librium as needed for alcohol withdrawal EEG was ordered by machine hoop maker helper Neurology was consulted by machine hoop maker helper CT head negative 2. Alcohol withdrawal [facility] protocol Transaminitissecondary to alcohol use Macrocytosislikely secondary alcohol VTE prophylaxis: Enoxaparin
[2023-09-02 16:40] LABS: Glucose,Whole Blood 104 mg/dL (70-110)
[2023-09-02] MEDS: PHENYTOIN SODIUM INJ 500 MG in SODIUM CHLORIDE 0.9% 50 ML IVPB STA (18:42)
--- NOTE | 2023-09-02 18:53 | P.CNNES ---
History of Present Illness Consult date: 09/02/23 Requesting physician: Jasbir Hein Reason for Consult: Seizure History of Present Illness: Patient is a 22-year-old right-handed female with history of alcoholism, came to the hospital by ambulance yesterday at 2:31 PM for possible seizure. Patient is not a very good historian, does not know when she started having seizures in her lifetime, and how many seizures has she ever had. She says that she probably had 4 of them "probably more", then she said "who knows". Patient states that she came to the hospital because she had 2 seizures, 1 after the another. She states that she went to the bathroom, felt if she is going to and started shaking. She made it to the bed and the next thing she remembers is waking up with EMS around. She did not bite her tongue, or loss of control of urine. She did lose consciousness. Patient states she drank a pint of rum and 1 big beer the night prior to the seizure. She had 1 seizure in the ER as well. As per EMS flowsheet when they arrived, patient was alert and oriented x 2-3 in a postictal state. Patient had 2 witnessed seizures that lasted approximately 30 seconds each. Patient's significant other stated that patient is possibly withdrawing from alcohol and that normally increases her seizure activity. Patient does have history of seizure disorder. Patient had an unknown amount of alcohol last night and has not had any more today, but typically an every day drinker. Patient was pale and diaphoretic with tremors in her hands and legs. Patient's vitals at the scene was blood pressure 129/70, pulse rate 89 respiration 20 saturation 95%. Blood sugar 92. Her blood test shows normal CBC with elevated MCV 109.7. Basic metabolic panel is normal, AST is 123, ALT 46. B12 407. UA negative. Blood alcohol level less than 10. Patient recently had hospital admission on 07/24/2023 with blood alcohol level of 396. EKG showed sinus rhythm. CT head showed no acute intracranial process seen at this time. I personally reviewed CT head, agree with the findings. Patient had an EEG done on 07/23/2023 which was normal awake EEG. No focal, lateralized or epileptiform activity was seen. Patient states that she drinks a pint of rum, and sometimes she along with that also drinks a bunch of beer. She drinks most of the days of the week and has been doing it for last 12 years. She also smokes 1 pack/day for last 20 years. Denies any marijuana use or any other drugs. Review of Systems Unremarkable, except as mentioned in HPI there pertinent positives and negatives. Her balance is improving. She is still shaky. Complains of some weakness. Past Medical History Past Medical History: Seizure Disorder Additional Past Medical History / Comment(s): hx tremors since age 12, hypoglycemic History of Any Multi-Drug Resistant Organisms: None Reported Past Surgical History: No Surgical Hx Reported Past Anesthesia/Blood Transfusion Reactions: Unable to Obtain Past Psychological History: Anxiety Smoking Status: Current every day smoker Past Alcohol Use History: Daily Past Drug Use History: None Reported Medications and Allergies Home Medications Medication Instructions Recorded Confirmed Type Ibuprofen [Motrin] 800 mg PO Q8H PRN 09/01/23 09/01/23 History Allergies Allergy/AdvReac Type Severity Reaction Status Date / Time lorazepam [From Ativan] AdvReac Hallucinati Verified 09/01/23 19:02 ons Physical Examination - Vital Signs Vital Signs: Vital Signs Temp Pulse Pulse Resp BP BP Pulse Ox 09/02/23 13:42 98.3 F 96 17 111/72 92 L 09/02/23 08:22 98 09/02/23 07:07 98.4 F 76 16 116/76 98 09/02/23 01:49 98.7 F 82 15 140/94 98 09/01/23 21:32 79 16 129/79 98 09/01/23 18:45 77 18 127/83 97 Intake and Output 09/01/23 09/02/23 09/02/23 22:59 06:59 14:59 Other: # Voids 1 Weight 68.039 kg Patient is a young female, in no acute distress. Patient has slightly slow mentation. Patient is alert awake oriented to time place and person. Speech and language f unctions are normal. Patient can name and repeat very well. No aphasia or dysarthria. Attention, concentration and fund of knowledge is adequate. On cranial nerve examination, pupils are equal, round and reacting to light, visual islas are full on confrontation, with no neglect on double simultaneous stimulation. Extraocular muscles are intact with no nystagmus. Face is symmetric, tongue protrudes to the midline. Palatal elevation and sensation normal, hearing and shoulder shrug normal, facial sensation normal. On muscle strength testing, there is no pronator drift and the strength is normal in arms and legs distally and proximally. Patient has mild shakiness of outstretched hands. Deep tendon reflexes are symmetric 2+ all over and plantars downgoing. Sensory to touch is equal with no neglect on double simultaneous stimulation. Cerebellar function showed no ataxia for [id number] testing, although she has mild to moderate shakiness. No dysdiadochokinesia. Tone and bulk of muscles is somewhat decreased particularly in the thighs and legs. Gait deferred.. On general examination, there is no carotid bruit or murmur, S1-S2 audible. Chest is clear on consultation. Abdomen is soft nontender. No organomegaly, bowel sounds present. Peripheral pulses are present. No peripheral edema. Results - Laboratory Findings CBC and BMP: 09/02/23 06:53 09/02/23 06:53 Abnormal Lab Findings: Abnormal Labs 09/01/23 09/01/23 09/01/23 16:09 16:43 16:43 WBC RBC Hct MCV 109.7 H MCH 36.1 H Lymphocytes # 0.8 L Macrocytosis Marked A Carbon Dioxide Anion Gap BUN 6 L Creatinine Glucose 101 H Magnesium 1.3 L Total Bilirubin 1.7 H AST 123 H ALT 46 H Urine Appearance Cloudy H Urine Protein 1+ H Urine Ketones 1+ H Ur Squamous Epith Cells 12 H Urine Mucus Moderate H 09/02/23 09/02/23 06:53 06:53 WBC 10.68 H RBC 3.50 L Hct 37.0 L MCV 105.7 H MCH 36.6 H Lymphocytes # Macrocytosis Carbon Dioxide 20.7 L Anion Gap 16.30 H BUN 6.4 L Creatinine 0.5 L Glucose Magnesium Total Bilirubin AST ALT Urine Appearance Urine Protein Urine Ketones Ur Squamous Epith Cells Urine Mucus Assessment and Plan Assessment: * Seizure, likely due to alcohol withdrawal. Patient drinks a pint of rum and often beer with it almost on a daily basis. Her blood alcohol level was <10. * Recent hospitalization on 07/24/2023 for seizure and alcohol intoxication * Chronic alcoholism * Macrocytosis, due to above * Tobacco use Plan: * Continue [facility] protocol. * No indication for antiepileptic medication, as her seizure was likely from alcohol withdrawal. * Patient counseled about abstinence from alcohol, which is a treatment of choice for alcohol related seizure. * Patient had a normal EEG on 07/23/2023. No need to repeat. * Watch for DTs. * Patient informed of [place] state law of no driving unless seizure-free for 6 months, climbing ladders, operating dangerous machinery or unsupervised swimming. * Recommend tobacco cessation. * Neurologically clear when medically stable. * Thank you for the consult.
[2023-09-02 20:02] VITALS: TEMP 98.5
[2023-09-02 20:39] LABS: Glucose,Whole Blood 131 mg/dL (70-110)
[2023-09-03 02:05] VITALS: BP 132/86; PULSE 83; RESP 18
[2023-09-03 06:11] LABS: Glucose,Whole Blood 111 mg/dL (70-110)
[2023-09-03 08:43] LABS: HCT 39.9 % (37.2-46.3); HGB 13.1 g/dL (12.0-15.0); MCH 35.7 pg (27.0-32.0); MCHC 32.8 g/dL (32.0-37.0); MCV 108.7 FL (80.0-97.0); Mean Platelet Volume 10.8 FL (9.5-12.2); NRBC Per 100 WBC 0 X 10*3/uL (0.00-0.01); Platelet Count 141 X 10*3/uL (140-440); RBC 3.67 X 10*6/uL (4.10-5.20); RDW 12.6 % (11.5-14.5); WBC 9.84 X 10*3/uL (4.50-10.00)
[2023-09-03 09:17] LABS: Blood Urea Nitrogen 6.3 mg/dL (9.0-27.0); Calcium 9.4 mg/dL (8.7-10.3); Carbon Dioxide 17.7 mmol/L (21.6-31.8); Chloride 100 mmol/L (96-109); Glucose 102 mg/dL (70-110); Sodium 135 mmol/L (135-145)
== END 2023-09-03 07:11 | disposition left against medical advice (07) | DRG 53 ==
LOC: EC 14:31 → 4SSUR 18:43 → OBSVTOIN 09-02 12:10
PROVIDERS: ADMIT Family Medicine; ATTEND Family Medicine
DX: G40.909 Epilepsy, unspecified, not intractable, without status epilepticus (principal); R74.01 Elevation of levels of liver transaminase levels; F10.239 Alcohol dependence with withdrawal, unspecified; D75.89 Other specified diseases of blood and blood-forming organs; E83.42 Hypomagnesemia; E72.51 Non-ketotic hyperglycinemia; R61 Generalized hyperhidrosis; F17.210 Nicotine dependence, cigarettes, uncomplicated; F41.9 Anxiety disorder, unspecified; Z56.0 Unemployment, unspecified; Z28.21 Immunization not carried out because of patient refusal; Z88.8 Allergy status to other drugs, medicaments and biological substances; Z53.29 Procedure and treatment not carried out because of patient's decision for other reasons
CPT/HCPCS: 36415; 70450; 80048; 80053; 80320; 81001; 81025; 82607; 82747; 83036; 83735; 85025; 85027; 93005; 94760; 96361; 96374; 96375; 99285

== ENCOUNTER 2023-12-21 07:01 | Observation (INO) | payer OTHER ==
--- NOTE | 2023-12-21 07:13 | ED ---
Seizure HPI - General Chief Complaint: Seizure Stated Complaint: seizure Time Seen by Provider: 12/21/23 07:13 Source: patient, EMS, RN notes reviewed Mode of arrival: EMS Limitations: no limitations - History of Present Illness Initial Comments: This is a 33-year-old female with a history of alcohol abuse and seizure disorder presenting to the emergency department via EMS for seizure. Patient states that she was seizing in her sleep that was witnessed by her boyfriend. She is unaware of how long the seizure lasted for. Denies loss of bladder or bowel continence or tongue biting or injuries at the time of the seizure. Patient states that she was given Zofran and route which has helped to alleviate her nausea. States that she drinks approximately 1 pint of alcohol per day with her last drink being a few hours ago. She denies fevers, chills, abdominal pain, shortness of breath, chest pain, or difficulty breathing. - Related Data Home Medications Medication Instructions Recorded Confirmed Ibuprofen [Motrin] 800 mg PO Q8H PRN 09/01/23 09/01/23 Allergies Allergy/AdvReac Type Severity Reaction Status Date / Time lorazepam [From Ativan] AdvReac Hallucinati Verified 09/01/23 19:02 ons Review of Systems ROS Statement: Those systems with pertinent positive or pertinent negative responses have been documented in the HPI. ROS Other: All systems not noted in ROS Statement are negative. Past Medical History Past Medical History: Seizure Disorder Additional Past Medical History / Comment(s): hx tremors since age 12, hypoglycemic History of Any Multi-Drug Resistant Organisms: None Reported Past Surgical History: No Surgical Hx Reported Past Anesthesia/Blood Transfusion Reactions: Unable to Obtain Past Psychological History: Anxiety Smoking Status: Current every day smoker Past Alcohol Use History: Daily Past Drug Use History: None Reported General Exam Limitations: no limitations General appearance: alert, in no apparent distress Eye exam: Present: normal appearance, PERRL, EOMI. Absent: scleral icterus, conjunctival injection, periorbital swelling Neck exam: Present: normal inspection. Absent: tenderness, meningismus, lymphadenopathy Respiratory exam: Present: normal lung sounds bilaterally. Absent: respiratory distress, wheezes, rales, rhonchi, stridor Cardiovascular Exam: Present: regular rate, normal rhythm, normal heart sounds. Absent: systolic murmur, diastolic murmur, rubs, gallop, clicks GI/Abdominal exam: Present: soft, normal bowel sounds. Absent: distended, tenderness, guarding, rebound, rigid Extremities exam: Present: normal inspection, full ROM, normal capillary refill. Absent: tenderness, pedal edema, joint swelling, calf tenderness Back exam: Present: normal inspection Neurological exam: Present: alert, oriented X3, CN II-XII intact Skin exam: Present: warm, dry, intact, normal color. Absent: rash Course Vital Signs 12/21/23 07:04 Temperature 98.4 F Pulse Rate 78 Respiratory 16 Rate Blood Pressure 145/91 O2 Sat by Pulse 98 Oximetry Medical Decision Making - Medical Decision Making Was pt. sent in by a medical professional or institution (, PA, CHEMISTRY ACCOUNT MANAGER, urgent care, hospital, or longterm...) When possible be specific @ -No Did you speak to anyone other than the patient for history (EMS, parent, family, police, friend...)? What history was obtained from this source @ -No Did you review nursing and triage notes (agree or disagree)? Why? @ -I reviewed and agree with nursing and triage notes Were old charts reviewed (outside hosp., previous admission, EMS record, old EKG, old radiological studies, urgent care reports/EKG's, longterm records)? Report findings @ -Reviewed patient's previous emergency department visit note where she was admitted for seizure, alcohol withdrawal, and impending DTs. Differential Diagnosis (chest pain, altered mental status, abdominal pain women, abdominal pain men, vaginal bleeding, weakness, fever, dyspnea, syncope, headache, dizziness, GI bleed, back pain, seizure, CVA, palpatations, mental health, musculoskeletal)? @ -Differential Seizure: Recurrent seizure disorder, febrile seizure, alcohol withdrawal, stimulants, meningitis, encephalitis, intercranial hemorrhage, intracranial tumor, stroke, eclampsia, thyrotoxicosis, hypocalcemia, hyponatremia, hypernatremia, hypomagnesemia, psychogenic, this is not meant to be an all-inclusive list. EKG interpreted by me (3pts min.). @ -Completed at 709 sinus rhythm with a ventricular of 79, ND of 137, QRS 102, QTc 456. X-rays interpreted by me (1pt min.). @ -None done CT interpreted by me (1pt min.). @ -None done U/S interpreted by me (1pt. min.). @ -None done What testing was considered but not performed or refused? (CT, X-rays, U/S, labs)? Why? @ -None What meds were considered but not given or refused? Why? @ -None Did you discuss the management of the patient with other professionals (professionals i.e. , PA, CHEMISTRY ACCOUNT MANAGER, lab, RT, psych nurse, older adult social work specialist, shank stapler, teacher, special forces officer, field case manager)? Give summary @ -Spoke with internal medicine physician, Dr. Wright, with [facility] in regard to the patient's workup and findings concerning for alcohol withdrawal and impending DTs. Patient is accepted for admission. Was smoking cessation discussed for >3mins.? @ -No Was critical care preformed (if so, how long)? @ -No Were there social determinants of health that impacted care today? How? (Homelessness, low income, unemployed, alcoholism, drug addiction, transpor tation, low edu. Level, literacy, decrease access to med. care, [facility], rehab)? @ -No Was there de-escalation of care discussed even if they declined (Discuss DNR or withdrawal of care, Hospice)? DNR status @ -No What co-morbidities impacted this encounter? (DM, HTN, Smoking, COPD, CAD, Cancer, CVA, ARF, Chemo, Hep., AIDS, mental health diagnosis, sleep apnea, morbid obesity)? @ -None Was patient admitted / discharged? Hospital course, mention meds given and route, prescriptions, significant lab abnormalities, going to OR and other pertinent info. @ -admitted. 33-year-old female with seizure. On my evaluation the patient she is noted to be mildly tremulous. neurological examination with no acute deficits. Patient was provided with Zofran and route states that her nausea is somewhat subsided. She is provided with dose of Valium, as she tolerates this better than Ativan, and IVF with concern for alcohol withdrawal pending laboratory results. CBC and CMP unremarkable, toxicology negative for salicylates, acetaminophen, alcohol level less than 10. Patient is provided with additional dose of IM and will be admitted to internal medicine with alcohol withdrawal precautions in place with concern for alcohol withdrawal and impending DTs. Case discussed with Dr. Ortega Undiagnosed new problem with uncertain prognosis? @ -No Drug Therapy requiring intensive monitoring for toxicity (Heparin, Nitro, Insulin, Cardizem)? @ -No Were any procedures done? @ -No Diagnosis/symptom? @ -alcohol abuse, alcohol withdrawal, seizure Acute, or Chronic, or Acute on Chronic? @ -Acute Uncomplicated (without systemic symptoms) or Complicated (systemic symptoms)? @ -complicated Side effects of treatment? @ -No Exacerbation, Progression, or Severe Exacerbation? @ -No Poses a threat to life or bodily function? How? (Chest pain, [place], [place], pneumonia, PE, COPD, DKA, ARF, appy, cholecystitis, CVA, Diverticulitis, Homicidal, Suicidal, threat to staff... and all critical care pts) @ -yes, DTs can lead to if not treated. - Lab Data Result diagrams: 12/21/23 07:33 12/21/23 07:33 Lab Results 12/21/23 12/21/23 Range/Units 07:33 07:33 WBC 7.6 (3.8-10.6) k/uL RBC 3.95 (3.80-5.40) m/uL Hgb 13.4 (11.4-16.0) gm/dL Hct 41.0 (34.0-46.0) % MCV 103.9 H (80.0-100.0) fL MCH 34.0 (25.0-35.0) pg MCHC 32.7 (31.0-37.0) g/dL RDW 13.9 (11.5-15.5) % Plt Count 177 (150-450) k/uL MPV 7.8 Neutrophils % 71 % Lymphocytes % 19 % Monocytes % 6 % Eosinophils % 3 % Basophils % 0 % Neutrophils # 5.4 (1.3-7.7) k/uL Lymphocytes # 1.4 (1.0-4.8) k/uL Monocytes # 0.5 (0-1.0) k/uL Eosinophils # 0.2 (0-0.7) k/uL Basophils # 0.0 (0-0.2) k/uL Macrocytosis Slight Sodium 135 L (137-145) mmol/L Potassium 3.7 (3.5-5.1) mmol/L Chloride 102 (98-107) mmol/L Carbon Dioxide 20 L (22-30) mmol/L Anion Gap 13 mmol/L BUN 10 (7-17) mg/dL Creatinine 0.57 (0.52-1.04) mg/dL Est GFR (CKD-EPI)AfAm >90 (>60 ml/min/1.73 sqM) Est GFR (CKD-EPI)NonAf >90 (>60 ml/min/1.73 sqM) Glucose 111 H (74-99) mg/dL Calcium 9.7 (8.4-10.2) mg/dL Phosphorus 2.7 (2.5-4.5) mg/dL Magnesium 1.8 (1.6-2.3) mg/dL Total Bilirubin 1.2 (0.2-1.3) mg/dL AST 56 H (14-36) U/L ALT 28 (4-34) U/L Alkaline Phosphatase 58 (38-126) U/L Total Protein 7.4 (6.3-8.2) g/dL Albumin 4.6 (3.5-5.0) g/dL Salicylates <1.0 mg/dL Acetaminophen <10.0 ug/mL Serum Alcohol <10 mg/dL Disposition Clinical Impression: Alcohol withdrawal seizure Disposition: ADMITTED IP TO THIS [facility] Condition: Serious Referrals: None,Stated [REFERRING] - 1-2 days Decision to Admit Reason: Admit from EC Decision Date: 12/21/23 Decision Time: 09:05
[2023-12-21] MEDS: SODIUM CHLORIDE 0.9% 1,000 ML IV STA (07:37)
[2023-12-21 07:42] LABS: Basophils % (A) 0 %; Eosinophils # (A) 0.2 k/uL (0-0.7); Eosinophils % (A) 3 %; HGB 13.4 gm/dL (11.4-16.0); Lymphocytes # (A) 1.4 k/uL (1.0-4.8); Lymphocytes % (A) 19 %; MCHC 32.7 g/dL (31.0-37.0); MCV 103.9 fL (80.0-100.0); Macrocytosis Slight; Mean Platelet Volume 7.8; Monocytes # (A) 0.5 k/uL (0-1.0); Monocytes % (A) 6 %; Neutrophils # (A) 5.4 k/uL (1.3-7.7); Neutrophils % (A) 71 %; Platelet Count 177 k/uL (150-450); RBC 3.95 m/uL (3.80-5.40); RDW 13.9 % (11.5-15.5); WBC 7.6 k/uL (3.8-10.6)
[2023-12-21 08:00] LABS: ALT 28 U/L (4-34); AST 56 U/L (14-36); Acetaminophen <10.0 ug/mL; African American GFR (CKD) >90 (>60 ml/min/1.73 sqM); Albumin 4.6 g/dL (3.5-5.0); Alcohol <10 mg/dL; Alkaline Phosphatase 58 U/L (38-126); Anion Gap 13 mmol/L; Blood Urea Nitrogen 10 mg/dL (7-17); Calcium 9.7 mg/dL (8.4-10.2); Carbon Dioxide 20 mmol/L (22-30); Chloride 102 mmol/L (98-107); Glucose 111 mg/dL (74-99); Magnesium 1.8 mg/dL (1.6-2.3); Non-African American GFR(CKD) >90 (>60 ml/min/1.73 sqM); Potassium 3.7 mmol/L (3.5-5.1); Salicylate <1.0 mg/dL; Sodium 135 mmol/L (137-145); Total Bilirubin 1.2 mg/dL (0.2-1.3); Total Protein 7.4 g/dL (6.3-8.2)
[2023-12-21 08:20] LABS: Phosphorus 2.7 mg/dL (2.5-4.5)
[2023-12-21] MEDS ORDERED: IBUPROFEN 400 MG TAB PO PRN (09:02)
[2023-12-21] MEDS ORDERED: ONDANSETRON 4 MG/2 ML VIAL IVP PRN (09:02)
[2023-12-21] MEDS ORDERED: NALOXONE 0.4 MG/ML 1 ML VIAL IV PRN (09:02)
[2023-12-21] MEDS ORDERED: KETOROLAC 15 MG/ML 1 ML VIAL IVP PRN (09:02)
[2023-12-21] MEDS ORDERED: chlordiazePOXIDE 25 MG CAP PO PRN ×3 (09:04)
[2023-12-21] MEDS: SODIUM CHLORIDE 0.9% 1,000 ML IV SCH (09:43)
[2023-12-21 10:24] LABS: Appearance,Urine Cloudy (Clear); Bacteria,Urine Many /hpf; Bilirubin,Urine Negative (Negative); Blood,Urine Negative (Negative); Color,Urine Yellow; Glucose,Urine (UA) Negative (Negative); Hyaline Casts,Urine 2 /lpf (0-2); Ketones,Urine 4+ (Negative); Leukocyte Esterase,Urine Small (Negative); Mucus,Urine Moderate /hpf; Nitrite,Urine Positive (Negative); Protein,Urine 1+ (Negative); RBC,Urine 1 /hpf (0-5); Specific Gravity,Urine 1.023 (1.001-1.035); Squamous Epithelial Cell,Urine 13 /hpf (0-4); Urobilinogen,Urine <2.0 mg/dL (<2.0); WBC,Urine 18 /hpf (0-5)
[2023-12-21 10:53] LABS: Amphetamine Screen,Urine Not Detected (NotDetected); Barbiturate Screen,Urine Not Detected (NotDetected); Benzodiazepines Screen,Urine Not Detected (NotDetected); Cocaine Screen,Urine Not Detected (NotDetected); Methadone Screen, Urine Not Detected (NotDetected); Opiate Screen,Urine Not Detected (NotDetected); Oxycodone Screen, Urine Not Detected (NotDetected); Phencyclidine Screen,Urine Not Detected (NotDetected); Tricyclic Antidepressant,Urine Not Detected (NotDetected); Urn Cannabinoid Scrn Not Detected (NotDetected)
[2023-12-21] MEDS ORDERED: IBUPROFEN 800 MG TAB PO PRN (12:38)
[2023-12-21] MEDS ORDERED: cloNIDine HCL 0.1 MG TAB PO PRN (12:40)
--- NOTE | 2023-12-21 12:58 | XR ---
EXAMINATION TYPE: XR chest 1V portable DATE OF EXAM: 12/21/2023 12:50 PM COMPARISON: Chest radiographs from 07/22/2023. CLINICAL INDICATION: Female, 33 years old with history of chf; TECHNIQUE: XR chest 1V portable Frontal view of the chest. FINDINGS: Lungs/Pleura: There is no evidence of pleural effusion, focal consolidation, or pneumothorax. Pulmonary vascularity: Unremarkable. Heart/mediastinum: Cardiomediastinal silhouette is unremarkable. Musculoskeletal: No acute osseous pathology. IMPRESSION: No acute cardiopulmonary disease/process. [facility], , 12/21/2023 12:56 PM
[2023-12-21] MEDS: cloNIDine HCL 0.1 MG TAB PO SCH (13:28)
[2023-12-21] MEDS: THIAMINE 250 MG in SODIUM CHLORIDE 0.9% 50 ML IVPB SCH (15:24)
--- NOTE | 2023-12-21 16:02 | XR ---
EXAMINATION TYPE: XR ankle limited RT DATE OF EXAM: 12/21/2023 3:44 PM COMPARISON: None. CLINICAL INDICATION: Female, 33 years old with history of fall and having bruising with ankle and benigno t pain,, TECHNIQUE: XR ankle limited RT 2 view(s) obtained. FINDINGS: Ankle mortise is intact. Mild soft tissue swelling over the lateral. No acute displaced fractures audrey dent. Follow up exams can be performed 7-10 days from acute trauma for continued pain. IMPRESSION: 1. No acute osseous abnormality left ankle. 2. Mild soft tissue swelling lateral malleolus. [facility], , 12/21/2023 4:00 PM
--- NOTE | 2023-12-21 16:04 | XR ---
EXAMINATION TYPE: XR foot limited RT DATE OF EXAM: 12/21/2023 3:44 PM COMPARISON: None. CLINICAL INDICATION: Female, 33 years old with history of fall and having bruising with ankle and benigno t pain,, TECHNIQUE: XR foot limited RT view(s) obtained. FINDINGS: Right foot examined in 2 projections. Alignment appears preserved. Joint spaces are preserved. No acu te fracture or dislocation evident. IMPRESSION: 1. No acute osseous abnormality right foot [facility], , 12/21/2023 4:01 PM
[2023-12-21] MEDS: chlordiazePOXIDE 25 MG CAP PO PRN (16:41)
--- NOTE | 2023-12-21 17:24 | HP ---
HISTORY AND PHYSICAL CHIEF COMPLAINT: Seizures and alcohol withdrawal. HISTORY OF PRESENT ILLNESS: This is a 33-year-old woman with a past medical history of multiple medical history including seizure disorder, was apparently drinking alcohol daily. The patient was found to have a seizure disorder while sleeping, which was witnessed by boyfriend. The patient was taken to [facility] and admitted for further evaluation and treatment. The patient also complaining of pain in the right ankle also. There is no history of any fever, rigors, or chills. The patient is extremely anxious and had features of tremors. PAST MEDICAL HISTORY: Reviewed and include seizures. Rest of the history and chart is also reviewed. HOME MEDICATIONS: Reviewed include Neurontin. Rest of medications noted. ALLERGIES: Ativan, hallucinations. FAMILY HISTORY: No history of heart disease or strokes in the family. SOCIAL HISTORY: No history of smoking or alcohol. REVIEW OF SYSTEMS: Fourteen-point review is negative except as mentioned earlier. PHYSICAL EXAMINATION: VITAL SIGNS: Pulse is 81, blood pressure 138/92, respirations 18. HEENT: Conjunctivae normal. NECK: No JVD. CARDIOVASCULAR: S1, S2. RESPIRATIONS: Breath sounds diminished at the bases. Scattered rhonchi and crackles. ABDOMEN: Soft, nontender. LEGS: The right ankle painful movement present. NERVOUS SYSTEM: No focal deficits. Diffuse tremors. SKIN: No ulcer, rash, bleeding. JOINTS: No active deforming arthropathy. LABORATORY DATA: Sodium 135. Rest of the labs are noted. ASSESSMENT: 1. Seizure disorder, possibly alcohol withdrawal. 2. Anxiety. 3. History of nicotine dependence. 4. History of tremors. RECOMMENDATION AND DISCUSSION: In this 33-year-old woman, who presented with multiple complex medical issues, we will monitor the patient closely. I would recommend continue with diazepam and Librium. I would also recommend Neurology consultation for seizure disorder. Resume the home medications. Recommend alcohol rehab once the patient is better. Otherwise, continue to monitor. Overall prognosis extremely guarded because of multiple complex medical issues. Further recommendations to follow. MMODL / IJN: [id number] /
[2023-12-21] MEDS: HEPARIN SODIUM,PORCINE 5,000 UNIT/ML 1 ML VIAL SQ SCH (23:56)
[2023-12-22 05:09] LABS: African American GFR (CKD) >90 (>60 ml/min/1.73 sqM); Anion Gap 9 mmol/L; Blood Urea Nitrogen 10 mg/dL (7-17); Calcium 9.2 mg/dL (8.4-10.2); Carbon Dioxide 15 mmol/L (22-30); Chloride 108 mmol/L (98-107); Glucose 90 mg/dL (74-99); Magnesium 1.7 mg/dL (1.6-2.3); Non-African American GFR(CKD) >90 (>60 ml/min/1.73 sqM); Sodium 132 mmol/L (137-145)
[2023-12-22 05:13] LABS: Basophils % (A) 0 %; Eosinophils # (A) 0.3 k/uL (0-0.7); Eosinophils % (A) 3 %; HGB 13.3 gm/dL (11.4-16.0); Lymphocytes % (A) 25 %; MCH 34.4 pg (25.0-35.0); MCHC 31.7 g/dL (31.0-37.0); MCV 108.6 fL (80.0-100.0); Macrocytosis Marked; Mean Platelet Volume 9.6; Monocytes # (A) 0.5 k/uL (0-1.0); Monocytes % (A) 6 %; Neutrophils # (A) 5.1 k/uL (1.3-7.7); Neutrophils % (A) 64 %; RBC 3.87 m/uL (3.80-5.40); RDW 14.1 % (11.5-15.5)
[2023-12-22 05:25] LABS: Platelet Count 150 k/uL (150-450)
[2023-12-22 05:40] LABS: Potassium 3.8 mmol/L (3.5-5.1)
[2023-12-22 09:38] VITALS: BP 113/72; PULSE 69; RESP 16; TEMP 98.5
[2023-12-22] MEDS: THIAMINE 100 MG TAB PO SCH (09:46)
[2023-12-22] MEDS: PANTOPRAZOLE 40 MG TABLET PO SCH (09:46)
[2023-12-22] MEDS: HYDROcodone/APAP 5-325MG 1 EACH TAB PO PRN (09:53)
--- NOTE | 2023-12-22 12:47 | P.CNNES ---
History of Present Illness Consult date: 12/22/23 Requesting physician: Joesph Vanegas Reason for Consult: Seizure History of Present Illness: Patient is a 33-year-old right-handed female came to the hospital by ambulance yesterday at 7:01 AM for a seizure. Patient states that she has been extremely sick for about 40 hours, what ever she would eat, she would vomit. The next states she tried to drink a lot of water. Patient states that she had an aura consisting of some taste sensation involving back of the tongue top of her nose, behind her nose and behind her upper cheek region with comes out of nowhere. She laid down, try to go to sleep and close her eyes, next thing she woke up to EMS around her. Patient is a very poor historian, not able to provide details. She states that she gets this feeling like might have 1, as described above. Patient states that she had "so many of them" in the past. This aura last for about 5 minutes, and occurs about 2-3 times a year. Patient tells me that her first seizure was at age 3. Then she started having some tremors. She then had seizures when she was in [employer]. She claims "not all seizures were alcohol related". The seizures have got worse in the last 15 years. Patient at one point stated that she had a lot of seizures over years. Then she said she had probable 4-5 seizures and then she said 20 seizures, and very vague regarding her history. She claims that she has "mini seizures" where everything goes black". She also had seizures in which she is alert cannot move, just babble. She also gets some grand mal seizures. Patient often goes tangent while talking. Patient denied any tongue bite or loss of control of urine with a seizure that happened yesterday. As per EMS flowsheet, when they arrived at the scene, patient was alert oriented x 2-3, laying in the bed after having a seizure. Bystanders state that she has been sick for past few days and has been throwing up. Bystanders states he does not think she has had seizures in few months. Patient denies any chest pain difficulty breathing or dizziness. She does feel nauseous. Patient's vitals at the scene was blood pressure 130/78, pulse rate 70 respiration 18, saturation 92%.. Blood sugar 113. Blood test shows normal CBC with elevated MCV 103.9. Sodium 135 potassium 3.7. Hip reticulocyte panel with elevated AST 56 with normal ALT 28. UA is negative. Urine drug screen and blood alcohol level negative. EKG showed sinus rhythm. Chest x-ray showed no acute cardiopulmonary process. Ankle x-ray showed no acute osseous abnormality left ankle. Mild soft tissue swelling left malleolus. Foot x-ray showed no fracture. Patient has been seen by myself on 09/02/2023 for seizures. It was felt patient has seizure likely due to alcohol withdrawal. Patient states that she had drank about 1/5 of alcohol almost for 10 years. Then she started cutting back and was drinking 2 pints a day. Then she cut back to 1-1/2 pints and lately she has been drinking only half pint of beer. In the past she has drink up to 1 liter a day "on and off". Patient states that she has MRI "a long time ago". Patient states that when she comes to ER if she gets medication that starts with "A", she hallucinate and is completely out, does not recognize her family members. Patient states that she can only tolerate the medication that starts with "D". I am not sure if she means Ativan and diazepam respectively. Review of Systems All pertinent positive and negative review of system mentioned in HPI. Patient does have some shakes, slightly confused. Slight balance issue. Tremors. Past Medical History Past Medical History: Seizure Disorder Additional Past Medical History / Comment(s): hx tremors since age 12, hypoglycemic History of Any Multi-Drug Resistant Organisms: None Reported Past Surgical History: No Surgical Hx Reported Past Anesthesia/Blood Transfusion Reactions: Unable to Obtain Past Psychological History: Anxiety Smoking Status: Current every day smoker Past Alcohol Use History: Daily Past Drug Use History: None Reported Medications and Allergies Home Medications Medication Instructions Recorded Confirmed Type Ibuprofen [Motrin] 800 mg PO Q8H PRN 09/01/23 12/21/23 History Gabapentin [Neurontin] 100 mg PO DIRECTED PRN 12/21/23 12/21/23 History Allergies Allergy/AdvReac Type Severity Reaction Status Date / Time lorazepam [From Ativan] AdvReac Hallucinati Verified 12/21/23 09:43 ons Physical Examination - Vital Signs Vital Signs: Vital Signs Temp Pulse Pulse Resp BP BP Pulse Ox 12/22/23 07:32 98.5 F 69 16 113/72 99 12/21/23 18:48 98.8 F 87 18 118/76 100 12/21/23 16:34 98.5 F 91 18 118/81 98 12/21/23 15:39 95 20 115/77 97 12/21/23 15:00 98.4 F 80 17 122/83 97 12/21/23 13:29 92 18 128/82 98 12/21/23 12:01 81 18 130/92 100 Intake and Output 12/21/23 12/22/23 12/22/23 22:59 06:59 14:59 Intake Total 708 590 Balance 708 590 Intake: Oral 708 590 Other: # Voids 1 2 Weight 74.843 kg Patient is a young female, in no acute distress. Patient often talks tangent, and is not providing very accurate history. She appears somewhat shaky. Patient is alert awake oriented to time place and person. Speech and language functions are normal. Patient can name and repeat very well. No aphasia or dysarthria. Attention, concentration is slightly decreased and fund of knowledge is adequate. On cranial nerve examination, pupils are equal, round and reacting to light, visual islas are full on confrontation, with no neglect on double simultaneous stimulation. Extraocular muscles are intact with no nystagmus. Face is symmetric, tongue protrudes to the midline. Palatal elevation and sensation normal, hearing and shoulder shrug normal, facial sensation normal. On muscle strength testing, there is no pronator drift and the strength is normal in arms and legs distally and proximally. Patient has mild to moderate shakiness of outstretched hands. Deep tendon reflexes are symmetric 2+ all over and plantars downgoing. Sensory to touch is equal with no neglect on double simultaneous stimulation. Cerebellar function showed no ataxia for [id number] testing, although she has mild to moderate shakiness. No dysdiadochokinesia. No ataxia for [id number] testing bilaterally. Tone and bulk of muscles normal. Gait, patient is able to walk, but appears somewhat unsteady at times.. On general examination, there is no carotid bruit or murmur, S1-S2 audible. Chest is clear on consultation. Abdomen is soft nontender. No organomegaly, bowel sounds present. Peripheral pulses are present. No peripheral edema. Results - Laboratory Findings CBC and BMP: 12/22/23 04:29 12/22/23 04:29 Abnormal Lab Findings: Abnormal Labs 12/21/23 12/21/23 12/21/23 07:22 07:33 07:33 MCV 103.9 H Macrocytosis Sodium 135 L Chloride Carbon Dioxide 20 L Glucose 111 H AST 56 H Urine Appearance Cloudy H Urine Protein 1+ H Urine Ketones 4+ H Urine Nitrite Positive H Ur Leukocyte Esterase Small H Urine WBC 18 H Ur Squamous Epith Cells 13 H Urine Bacteria Many H Urine Mucus Moderate H 12/22/23 12/22/23 04:29 04:29 MCV 108.6 H Macrocytosis Marked A Sodium 132 L Chloride 108 H Carbon Dioxide 15 L Glucose AST Urine Appearance Urine Protein Urine Ketones Urine Nitrite Ur Leukocyte Esterase Urine WBC Ur Squamous Epith Cells Urine Bacteria Urine Mucus Assessment and Plan Assessment: * Probable alcohol withdrawal seizure. Patient states that she has history of seizures since age 3, and has been having different type of seizures over years. Currently not on any antiepileptic medication. * Patient showing signs of alcohol withdrawal with tremors. * Alcoholism, chronic * Macrocytosis due to above * Tobacco use Plan: * Patient has had different type of seizures over years. Patient claims that she has history of seizures even before she started drinking alcohol heavily. Patient also sometimes gets a prior aura, before her seizure, consisting of some unusual taste sensation in the back of the tongue, nose and cheek, which typically occurs with focal onset seizures. We will therefore start her on Keppra 500 mg twice daily, with a prior loading dose of 1000 mg IV x 1. * Recommend patient follow-up with neurologist outpatient for prolonged EEG, and perhaps repeat MRI of the brain with and without contrast. This can be done as an outpatient. * Patient counseled about abstinence from alcohol. * Patient showing some signs of alcohol withdrawal. Consider [facility] protocol. * B12 407, RBC folate 596 and hemoglobin A1c 5.0 on 09/02/2023 * Informed patient of no driving unless seizure-free for 6 months, climbing ladders, operating dangerous machinery or unsupervised swimming. * Neurologically clear for discharge, if medically cleared. Thank you for the consult.
[2023-12-22] MEDS: levETIRAcetam IV 500 MG/5 ML VIAL IVP STA (13:05)
[2023-12-22] MEDS: levETIRAcetam 500 MG TAB PO STA (13:14)
[2023-12-22] MEDS ORDERED: levETIRAcetam 500 MG TAB PO SCH (21:00)
--- NOTE | 2023-12-26 11:59 | P.DS ---
Providers Date of admission: 12/21/23 08:50 Expected date of discharge: 12/22/23 Attending physician: Quoc Cristina MD Consults: 12/21/23 12:38 Consult Physician Routine Consulting Provider: Jayy Noble Consult Reason/Comments: seizure Do you want consulting provider notified?: Yes Primary care physician: Physician Nonstaff Hospital Course: Final diagnosis Seizure disorder, likely alcohol withdrawal Acute alcohol withdrawal with delirium tremens History of anxiety Right ankle and foot pain, status post fall, negative for fractures History of nicotine dependence GI prophylaxis DVT prophylaxis Full code Discharge disposition Patient is being discharged in a stable condition with guarded prognosis to home. Patient will follow-up with Dr. Zen Vanegas in the outpatient setting upon discharge. Patient is to continue with Librium taper and also strongly recommend inpatient alcohol rehab. Patient to follow-up with [facility] outpatient as well as neurology as scheduled. Total time taken is greater than 35 minutes. Hospital course This is a 33-year-old female who was recently admitted with seizure disorder likely alcohol withdrawal induced being closely monitored maintained on CIWA protocol. Patient maintained on Librium taper reports to feeling improved and wants to go home. Patient evaluated by neurology recommending outpatient neurological follow-up. Will give a Librium taper on discharge and also strongly recommend [facility] follow-up as well as inpatient alcohol rehab. Patient is adamant about going home at this time and has no real desire to quit drinking. Currently no reports of chest pain, shortness of breath, or palpitations. Patient is afebrile. No reports of nausea or vomiting and patient is tolerating diet. Patient will be discharged home today. Guarded prognosis and high risk for readmissions given patient's continued ongoing alcohol abuse and noncompliance to follow-up. Physical exam: Gen: This is a 33-year-old female who is awake, alert oriented x 3, well- developed, appears older than stated age HEENT: Head is atraumatic, normocephalic. Pupils equal, round. Sclerae is anicteric. NECK: Supple. No JVD. No lymphadenopathy. No thyromegaly. LUNGS: Clear to auscultation. No wheezes or rhonchi. No intercostal retractions. HEART: Regular rate and rhythm. No murmur. ABDOMEN: Soft. Bowel sounds are present. No masses. No tenderness. EXTREMITIES: No pedal edema. No calf tenderness. NEUROLOGICAL: Patient is awake, alert and oriented x3. Cranial nerves 2 through 12 are grossly intact. Please refer to medication reconciliation sheet for a list of medications. The impression and plan of care has been dictated by Ivania Shultz, Nurse Practitioner as directed. Dr. Guilherme MD I have performed a history and examination and MDM of this patient, discussed the same with the dictator, and agree with the dictator's assessment and plan as written ,documented as a scribe. Based on total visit time, I have performed more than 50% of the visit. Patient Condition at Discharge: Fair Plan - Discharge Summary New Discharge Prescriptions: New levETIRAcetam [Keppra] 500 mg PO Q12HR #60 tab Thiamine [Vitamin B-1] 100 mg PO DAILY #30 tab chlordiazePOXIDE HCl [Librium] 25 mg PO QID #10 cap Continue Ibuprofen [Motrin] 800 mg PO Q8H PRN PRN Reason: Pain Gabapentin [Neurontin] 100 mg PO DIRECTED PRN PRN Reason: SHAKING/WITHDRAWLS Discharge Medication List Ibuprofen [Motrin] 800 mg PO Q8H PRN 09/01/23 [History] Gabapentin [Neurontin] 100 mg PO DIRECTED PRN 12/21/23 [History] Thiamine [Vitamin B-1] 100 mg PO DAILY #30 tab 12/22/23 [Rx] chlordiazePOXIDE HCl [Librium] 25 mg PO QID #10 cap 12/22/23 [Rx] levETIRAcetam [Keppra] 500 mg PO Q12HR #60 tab 12/22/23 [Rx] Follow up Appointment(s)/Referral(s): Katie Avila MD [STAFF PHYSICIAN] - 1 Week (please call to set up a new patient appointment. Extention [phone]) Santiago Hernadez MD [Medical Doctor] - 1 Week (Patient has longstanding history of seizure disorder, even before she started drinking alcohol. Now she has more alcohol withdrawal seizure. She may need prolonged EEG, repeat MRI of the brain.) Patient Instructions/Handouts: Seizure/Epilepsy Discharge Instructions & Follow-Up, Chlordiazepoxide (By mouth), Thiamine (By mouth), Levetiracetam (By mouth), Alcohol Withdrawal (DC), Alcohol Dependence (DC) Activity/Diet/Wound Care/Special Instructions: Activity limited until follow-up Follow-up with primary care provider to establish Continue taking medications as prescribed Follow-up with neurologist outpatient Strongly recommend complete alcohol cessation and inpatient rehab No driving until 6 months seizure free and released by physician to drive. Discharge/Stand Alone Forms: AA Meetings [facility] & 24 - [facility], AA Meetings [place], Outpatient Counseling, In Substance Abuse Facilities, Area PCPs Discharge Disposition: HOME SELF-CARE
== END 2023-12-22 14:00 | disposition home or self-care (01) ==
LOC: EC 07:01 → 6NMEDSUR 08:50 → 5NMEDONC 20:34
PROVIDERS: ADMIT Internal Medicine; ATTEND Internal Medicine
DX: F10.231 Alcohol dependence with withdrawal delirium (principal); G40.409 Other generalized epilepsy and epileptic syndromes, not intractable, without status epilepticus; D75.89 Other specified diseases of blood and blood-forming organs; R11.0 Nausea; M79.671 Pain in right foot; M25.571 Pain in right ankle and joints of right foot; W19.XXXA Unspecified fall, initial encounter; F41.9 Anxiety disorder, unspecified; F17.210 Nicotine dependence, cigarettes, uncomplicated; Z53.29 Procedure and treatment not carried out because of patient's decision for other reasons; Z91.199 Patient's noncompliance with other medical treatment and regimen due to unspecified reason; Z88.8 Allergy status to other drugs, medicaments and biological substances
CPT/HCPCS: 96365; 96366 ×2; 96376; 96361; 96375; 99285; 36415; 93005; 80053; 80048; 83735 ×2; 84100; 85025 ×2; 81001; 81025; 80306; 80143; 80179; 73600; 73620; 71045; G0378 ×3; G0480; J3411; J3360; 80320

== ENCOUNTER 2024-01-01 16:18 | Emergency (ER) | payer OTHER ==
[2024-01-01 17:00] VITALS: TEMP 98.3
--- NOTE | 2024-01-01 17:06 | ED ---
Seizure HPI - General Chief Complaint: Seizure Stated Complaint: R ankle pain Time Seen by Provider: 01/01/24 17:06 Source: patient Mode of arrival: ambulatory - History of Present Illness Initial Comments: 33-year-old female presenting with chief complaint of seizure. Patient has history of seizure disorder, since childhood. Patient is also a daily drinker, she reports that her last drink was 4 days ago and she normally drinks a pint per day. She is mildly tremulous. Patient was recently admitted and evaluated by neurology, started on Keppra last week, did not start taking it until today because "she hates pills". She is also complaining of some right ankle pain, she had a seizure last week and thinks she may have injured it then, she did have x-rays which were negative. No chest pain, difficulty breathing, abdominal pain, headache, vision or hearing changes. Some nausea no vomiting - Related Data Home Medications Medication Instructions Recorded Confirmed Ibuprofen [Motrin] 800 mg PO Q8H PRN 09/01/23 12/21/23 Gabapentin [Neurontin] 100 mg PO DIRECTED PRN 12/21/23 12/21/23 Previous Rx's Medication Instructions Recorded Thiamine [Vitamin B-1] 100 mg PO DAILY #30 tab 12/22/23 chlordiazePOXIDE HCl [Librium] 25 mg PO QID #10 cap 12/22/23 levETIRAcetam [Keppra] 500 mg PO Q12HR #60 tab 12/22/23 chlordiazePOXIDE HCl [Librium] 25 mg PO TID PRN 3 Days #9 capsule 01/01/24 Allergies Allergy/AdvReac Type Severity Reaction Status Date / Time lorazepam [From Ativan] AdvReac Hallucinati Verified 01/01/24 17:00 ons Review of Systems ROS Statement: Those systems with pertinent positive or pertinent negative responses have been documented in the HPI. ROS Other: All systems not noted in ROS Statement are negative. Past Medical History Past Medical History: Seizure Disorder Additional Past Medical History / Comment(s): hx tremors since age 12, hypoglycemic History of Any Multi-Drug Resistant Organisms: None Reported Past Surgical History: No Surgical Hx Reported Past Anesthesia/Blood Transfusion Reactions: Unable to Obtain Past Psychological History: Anxiety Smoking Status: Current every day smoker Past Alcohol Use History: Daily Past Drug Use History: None Reported General Exam - General Exam Comments Initial Comments: Visual Physical Exam Vital signs reviewed General: Well-appearing, nontoxic, no acute distress. Head: Normocephalic, atraumatic Eyes: PERRLA, EOMI ENT: Airway patent Chest: Nonlabored breathing Skin: No visual rash, normal skin tone Neuro: Alert and oriented 3 Musculoskeletal: No gross abnormalities General appearance: alert, in no apparent distress Head exam: Present: atraumatic, normocephalic, normal inspection Eye exam: Present: normal appearance, PERRL, EOMI Pupils: Present: normal accommodation Neck exam: Present: normal inspection. Absent: meningismus Respiratory exam: Present: normal lung sounds bilaterally. Absent: respiratory distress, wheezes, rales, rhonchi, stridor Cardiovascular Exam: Present: regular rate, normal rhythm, normal heart sounds. Absent: systolic murmur, diastolic murmur, rubs, gallop, clicks Neurological exam: Present: alert, oriented X3 Expanded Patient oriented to: Present: person, place, time Speech: Present: fluid speech Cranial nerves: EOM's Intact: Normal Motor strength exam: RUE: 5, LUE: 5, RLE: 5, LLE: 5 Eye Response: (4) open spontaneously Motor Response: (6) obeys commands Verbal Response: (5) oriented [place] Total: 15 Psychiatric exam: Present: normal affect, normal mood Skin exam: Present: warm, dry Course Vital Signs 01/01/24 01/01/24 01/01/24 16:50 17:55 20:12 Temperature 98.3 F Pulse Rate 107 H 91 99 Respiratory 18 20 18 Rate Blood Pressure 138/99 133/91 138/80 O2 Sat by Pulse 98 97 99 Oximetry Medical Decision Making - Medical Decision Making I performed the quick note portion of this visit, electronically signed Niko Cruz PA-C Was pt. sent in by a medical professional or institution ([facility], [employer], urgent care, hospital, or group home...) When possible be specific @ -No Did you speak to anyone other than the patient for history (EMS, parent, family, police, friend...)? What history was obtained from this source @ -No Did you review nursing and triage notes (agree or disagree)? Why? @ -I reviewed and agree with nursing and triage notes Were old charts reviewed (outside hosp., previous admission, EMS record, old EKG, old radiological studies, urgent care reports/EKG's, group home records)? Report findings @ -Reviewed the patient's most recent admission Differential Diagnosis (chest pain, altered mental status, abdominal pain women, abdominal pain men, vaginal bleeding, weakness, fever, dyspnea, syncope, heada cathy, dizziness, GI bleed, back pain, seizure, CVA, palpatations, mental health, musculoskeletal)? @ -MDM Differential Seizure: Recurrent seizure disorder, febrile seizure, alcohol withdrawal, stimulants, meningitis, encephalitis, intercranial hemorrhage, intracranial tumor, stroke, eclampsia, thyrotoxicosis, hypocalcemia, hyponatremia, hypernatremia, hypomagnesemia, psychogenic this is not meant to be an all-inclusive list EKG interpreted by me (3pts min.). @ -EKG shows sinus rhythm ventricular rate 82. [place] interval 132. QRS 91. QT 396. QTc 435. X-rays interpreted by me (1pt min.). @ -Ankle x-ray shows soft tissue swelling without acute fracture or dislocation CT interpreted by me (1pt min.). @ -None done U/S interpreted by me (1pt. min.). @ -None done What testing was considered but not performed or refused? (CT, X-rays, U/S, labs)? Why? @ -None What meds were considered but not given or refused? Why? @ -None Did you discuss the management of the patient with other professionals (professionals i.e. , PA, [employer], lab, RT, psych nurse, criminal justice social worker, senior software quality engineer, teacher, staff air defense officer, case hardener)? Give summary @ -No Was smoking cessation discussed for >3mins.? @ -No Was critical care preformed (if so, how long)? @ -No Were there social determinants of health that impacted care today? How? (Homelessness, low income, unemployed, alcoholism, drug addiction, transp ortation, low edu. Level, literacy, decrease access to med. care, care home, rehab)? @ -No Was there de-escalation of care discussed even if they declined (Discuss DNR or withdrawal of care, Hospice)? DNR status @ -No What co-morbidities impacted this encounter? (DM, HTN, Smoking, COPD, CAD, Cancer, CVA, ARF, Chemo, Hep., AIDS, mental health diagnosis, sleep apnea, morbid obesity)? @ -None Was patient admitted / discharged? Hospital course, mention meds given and route, prescriptions, significant lab abnormalities, going to OR and other pertinent info. @ -33-year-old female presenting with chief complaint of seizure. Patient has history of both seizure disorder and daily drinking. She was not taking her Keppra which is newly prescribed. Her last drink was 4 days ago. Patient is mildly tremulous, otherwise minimal symptoms of withdrawal. She has had no medication for withdrawal. Lab work requires no action. EKG shows sinus rhythm. Patient feels well and is requesting to be discharged. Given that patient has history of seizure disorder and was not taking her medication, and nursing staff scored her as a CIWA of 0 without intervention, there should be low likelihood for DTs. I offered admission, patient insists on discharge, she is of sound mind and body able to make her own decisions. she is given a prescription for Librium and is instructed to continue her medications as prescribed. Provided with strict return parameters. Discharged. Follow-up with PCP. Report back to ER with any new or worsening symptoms. Discussed return parameters and answered all questions. Patient conveyed verbal understanding and agreed to the plan. I discussed this case in detail with my attending Dr. Ortega Undiagnosed new problem with uncertain prognosis? @ -No Drug Therapy requiring intensive monitoring for toxicity (Heparin, Nitro, Insulin, Cardizem)? @ -No Were any procedures done? @ -No Diagnosis/symptom? @ -Seizure Acute, or Chronic, or Acute on Chronic? @ -Acute on chronic Uncomplicated (without systemic symptoms) or Complicated (systemic symptoms)? @ -Uncomplicated Side effects of treatment? @ -No Exacerbation, Progression, or Severe Exacerbation? @ -No - Lab Data Result diagrams: 01/01/24 18:04 01/01/24 18:04 Lab Results 01/01/24 01/01/24 01/01/24 Range/Units 18:04 18:04 18:04 WBC 7.6 (3.8-10.6) k/uL RBC 4.19 (3.80-5.40) m/uL Hgb 14.1 (11.4-16.0) gm/dL Hct 43.6 (34.0-46.0) % MCV 104.3 H (80.0-100.0) fL MCH 33.8 (25.0-35.0) pg MCHC 32.4 (31.0-37.0) g/dL RDW 13.9 (11.5-15.5) % Plt Count 246 (150-450) k/uL MPV 7.6 Neutrophils % 66 % Lymphocytes % 22 % Monocytes % 7 % Eosinophils % 3 % Basophils % 1 % Neutrophils # 5.0 (1.3-7.7) k/uL Lymphocytes # 1.7 (1.0-4.8) k/uL Monocytes # 0.5 (0-1.0) k/uL Eosinophils # 0.2 (0-0.7) k/uL Basophils # 0.0 (0-0.2) k/uL Macrocytosis Slight Sodium 137 (137-145) mmol/L Potassium 4.5 (3.5-5.1) mmol/L Chloride 105 (98-107) mmol/L Carbon Dioxide 26 (22-30) mmol/L Anion Gap 6 mmol/L BUN 10 (7-17) mg/dL Creatinine 0.63 (0.52-1.04) mg/dL Est GFR (CKD-EPI)AfAm >90 (>60 ml/min/1.73 sqM) Est GFR (CKD-EPI)NonAf >90 (>60 ml/min/1.73 sqM) Glucose 98 (74-99) mg/dL Plasma Lactic Acid Akash 1.0 (0.7-2.0) mmol/L Calcium 10.1 (8.4-10.2) mg/dL Magnesium 1.9 (1.6-2.3) mg/dL Total Bilirubin 0.6 (0.2-1.3) mg/dL AST 109 H (14-36) U/L ALT 51 H (4-34) U/L Alkaline Phosphatase 53 (38-126) U/L Total Protein 7.9 (6.3-8.2) g/dL Albumin 4.6 (3.5-5.0) g/dL Disposition Clinical Impression: Alcohol withdrawal, Seizure disorder Disposition: HOME SELF-CARE Condition: Fair Additional Instructions: Follow-up with PCP. Report back to ER with any new or worsening symptoms. Follow-up with neurology as previously instructed Prescriptions: chlordiazePOXIDE HCl [Librium] 25 mg PO TID PRN 3 Days #9 capsule PRN Reason: Alcohol Withdrawal Is patient prescribed a controlled substance at d/c from ED?: No Referrals: None,Stated [Primary Care Provider] - 1-2 days Katie Avila MD [STAFF PHYSICIAN] - 1-2 days Santiago Hernadez MD [Medical Doctor] - 1-2 days Time of Disposition: 19:46
[2024-01-01 18:14] LABS: Basophils % (A) 1 %; Eosinophils # (A) 0.2 k/uL (0-0.7); Eosinophils % (A) 3 %; HCT 43.6 % (34.0-46.0); HGB 14.1 gm/dL (11.4-16.0); Lymphocytes # (A) 1.7 k/uL (1.0-4.8); Lymphocytes % (A) 22 %; MCH 33.8 pg (25.0-35.0); MCHC 32.4 g/dL (31.0-37.0); MCV 104.3 fL (80.0-100.0); Macrocytosis Slight; Mean Platelet Volume 7.6; Monocytes # (A) 0.5 k/uL (0-1.0); Monocytes % (A) 7 %; Neutrophils % (A) 66 %; Platelet Count 246 k/uL (150-450); RBC 4.19 m/uL (3.80-5.40); RDW 13.9 % (11.5-15.5); WBC 7.6 k/uL (3.8-10.6)
[2024-01-01 18:26] LABS: ALT 51 U/L (4-34); African American GFR (CKD) >90 (>60 ml/min/1.73 sqM); Albumin 4.6 g/dL (3.5-5.0); Anion Gap 6 mmol/L; Blood Urea Nitrogen 10 mg/dL (7-17); Calcium 10.1 mg/dL (8.4-10.2); Carbon Dioxide 26 mmol/L (22-30); Chloride 105 mmol/L (98-107); Glucose 98 mg/dL (74-99); Non-African American GFR(CKD) >90 (>60 ml/min/1.73 sqM); Sodium 137 mmol/L (137-145); Total Bilirubin 0.6 mg/dL (0.2-1.3); Total Protein 7.9 g/dL (6.3-8.2)
[2024-01-01 18:34] LABS: Magnesium 1.9 mg/dL (1.6-2.3); Potassium 4.5 mmol/L (3.5-5.1)
[2024-01-01 18:35] LABS: AST 109 U/L (14-36); Alkaline Phosphatase 53 U/L (38-126)
--- NOTE | 2024-01-01 19:30 | XR ---
EXAMINATION TYPE: XR ankle complete RT DATE OF EXAM: 01/01/2024 7:16 PM COMPARISON: Previous radiograph of the foot/ankle dated 12/21/2023 CLINICAL INDICATION: Female, 33 years old with history of pain; [facility] TECHNIQUE: XR ankle complete RT; ankle is imaged in frontal, lateral and oblique projections. FINDINGS: No acute fracture or dislocation. Tibiotalar joint and talar dome is unremarkable. Soft tissue swelli ng surrounding the right ankle. No focal osseous erosion or periosteal reaction. No unexpected opaque foreign body. IMPRESSION: Right ankle soft tissue swelling without acute fracture or dislocation. [facility], , 01/01/2024 7:28 PM
[2024-01-01 20:13] VITALS: BP 138/80; PULSE 99; RESP 18
== END 2024-01-01 20:13 | disposition home or self-care (01) ==
LOC: EC 16:18
DX: R56.9 Unspecified convulsions (principal); M25.571 Pain in right ankle and joints of right foot; F10.939 Alcohol use, unspecified with withdrawal, unspecified; F17.200 Nicotine dependence, unspecified, uncomplicated; Z88.8 Allergy status to other drugs, medicaments and biological substances
CPT/HCPCS: 36415; 80053; 83605; 83735; 85025; 93005; 99284